=== PATIENT | female | born 1950 | race Caucasian/White ===

== ENCOUNTER 2017-10-22 05:24 | Inpatient (IN) | payer MEDICARE ==
[~2017-10-22] VITALS: Ht 177.8 cm; Wt 78.0 kg
[2017-10-22 05:25] VITALS: BP 215/122
[2017-10-22 05:46] LABS: ABSOLUTE BASOPHILS 0.1 thou/uL (0.0-0.2); ABSOLUTE MONOCYTES 0.3 thou/uL (0.0-1.2); ABSOLUTE NEUTROPHILS 2.4 thou/uL (1.6-8.1); BASOPHILS 3.2 %; EOSINOPHILS 0.5 %; HEMATOCRIT 41.4 % (37.0-47.0); HEMOGLOBIN 14.4 gm/dL (12.0-15.0); LYMPHOCYTES 26.8 %; MCH 38.6 pg (26.0-34.0); MCHC 34.7 g/dL (28.0-37.0); MCV 111.1 fL (80.0-100.0); MONOCYTES 7.3 %; MPV 9.1 fl. (7.2-11.1); NUCLEATED RBCS 0 /100WBC; PLATELET COUNT* 137 thou/uL (150-400); POLYS 62.2 %; RBC 3.73 mil/uL (4.20-5.00); RDW-CV 15.1 % (10.5-14.5); WBC 3.9 thou/uL (4.0-11.0)
[2017-10-22 05:51] LABS: CALCIUM 10.1 mg/dL (8.5-10.1); CREATININE 0.8 mg/dL (0.6-1.3); POTASSIUM 3.6 mmol/L (3.5-5.1)
[2017-10-22 06:05] LABS: ALBUMIN 4.3 g/dL (3.4-5.0); TOTAL BILIRUBIN 1.2 mg/dL (<0.1-1.0)
[2017-10-22 08:00] VITALS: BP 118/74
[2017-10-22 08:00] LABS: URINE BILIRUBIN NEGATIVE (Negative); URINE BLOOD NEGATIVE (Negative); URINE CLARITY CLEAR; URINE COLOR YELLOW; URINE GLUCOSE-RANDOM NEGATIVE (Negative); URINE KETONES NEGATIVE (Negative); URINE LEUKOCYTES-REFLEX NEGATIVE (Negative); URINE NITRITE-REFLEX NEGATIVE (Negative); URINE PROTEIN NEGATIVE (Negative); URINE SPECIFIC GRAVITY <= 1.005 (1.005-1.030)
[2017-10-22 08:38] LABS: PLATELET ESTIMATE DECREASED
[2017-10-22 08:39] LABS: MACROCYTES 2+
[2017-10-22 09:22] LABS: AMP/METHAMP Negative (Negative); BARBITURATES Negative (Negative); BENZODIAZEPINES Negative (Negative); COCAINE Negative (Negative); METHADONE Negative (Negative); OPIATES Negative (Negative); PCP Negative (Negative); THC Negative (Negative)
[2017-10-22 11:03] VITALS: BP 110/62
[2017-10-22 11:15] VITALS: BP 124/101
[2017-10-22] MEDS ORDERED: NEURONTIN 300300 M1 PO (11:36)
[2017-10-22] MEDS ORDERED: CLONIDINE0.1 PO (11:39)
[2017-10-22 16:03] VITALS: BP 119/63
--- NOTE | 2017-10-22 16:06 | EKG ---
[place] [address] ELECTROCARDIOGRAM REPORT Name: ROMULO WHITMAN Room: [address] IN [facility]#: [id number] Admission: 10/22/17 Attend Phys: Quang Street, Discharge: Date of : 46 Report #: [id number] THIS REPORT FOR: //name// [facility] ED Test Date: 2017-10-22 Test Time: 05:54:29 Pat Name: ROMULO WHITMAN Department: Room: Gender: F Md Allergy Immunology: : 1950 Requested By: Cece Doss Order Number: [id number] MD: Chico Michael Measurements Intervals [place] Rate: 77 P: 34 AR: 199 QRS: 3 QRSD: 142 T: 15 QT: 422 QTc: 478 Interpretive Statements Sinus rhythm Right bundle branch block No previous ECG available for comparison Electronically Signed On 10-22-2017 16:05:42 CDT by Chico Michael [email or web address] <ELECTRONICALLY SIGNED> By: Chico Michael MD, [facility] 10/22/17 1605 0554 0554 Chico Michael MD, FACC /EPI
[2017-10-22 21:00] VITALS: BP 150/63
[2017-10-23 04:48] LABS: CALCIUM 8.3 mg/dL (8.5-10.1); CREATININE 0.7 mg/dL (0.6-1.3); POTASSIUM 3.9 mmol/L (3.5-5.1)
[2017-10-23 04:56] LABS: ABSOLUTE BASOPHILS 0.1 thou/uL (0.0-0.2); ABSOLUTE EOSINOPHILS 0.1 thou/uL (0.0-0.7); ABSOLUTE LYMPHOCYTES 1.5 thou/uL (0.8-5.3); ABSOLUTE MONOCYTES 0.3 thou/uL (0.0-1.2); ABSOLUTE NEUTROPHILS 1.9 thou/uL (1.6-8.1); BASOPHILS 1.5 %; EOSINOPHILS 1.7 %; HEMATOCRIT 31.9 % (37.0-47.0); LYMPHOCYTES 39.2 %; MCH 39.3 pg (26.0-34.0); MCHC 34.6 g/dL (28.0-37.0); MCV 113.3 fL (80.0-100.0); MONOCYTES 8.2 %; MPV 9.4 fl. (7.2-11.1); NUCLEATED RBCS 0 /100WBC; PLATELET COUNT* 97 thou/uL (150-400); POLYS 49.4 %; RBC 2.81 mil/uL (4.20-5.00); RDW-CV 15.3 % (10.5-14.5); WBC 3.9 thou/uL (4.0-11.0)
[2017-10-23 07:10] LABS: MACROCYTES 2+; PLATELET ESTIMATE DECREASED
[2017-10-23 07:11] LABS: ANISOCYTOSIS 2+; POIKILOCYTOSIS 1+
[2017-10-23 08:20] VITALS: BP 173/85
[2017-10-23 17:34] VITALS: BP 167/82
[2017-10-23 21:00] VITALS: BP 164/78
[2017-10-24 04:00] VITALS: BP 168/92
[2017-10-24 04:22] LABS: ABSOLUTE EOSINOPHILS 0.1 thou/uL (0.0-0.7); ABSOLUTE LYMPHOCYTES 1.4 thou/uL (0.8-5.3); ABSOLUTE MONOCYTES 0.3 thou/uL (0.0-1.2); ABSOLUTE NEUTROPHILS 2.2 thou/uL (1.6-8.1); BASOPHILS 1.1 %; EOSINOPHILS 1.8 %; HEMATOCRIT 32.3 % (37.0-47.0); HEMOGLOBIN 11.1 gm/dL (12.0-15.0); MCH 39.6 pg (26.0-34.0); MCHC 34.3 g/dL (28.0-37.0); MCV 115.4 fL (80.0-100.0); MONOCYTES 8.5 %; MPV 9.1 fl. (7.2-11.1); NUCLEATED RBCS 0 /100WBC; PLATELET COUNT* 103 thou/uL (150-400); POLYS 53.6 %; RBC 2.79 mil/uL (4.20-5.00); RDW-CV 15.6 % (10.5-14.5); WBC 4.1 thou/uL (4.0-11.0)
[2017-10-24 05:51] LABS: ANISOCYTOSIS 1+; MACROCYTES 2+
[2017-10-24 05:52] LABS: PLATELET ESTIMATE DECREASED; POIKILOCYTOSIS 1+
[2017-10-24 08:00] VITALS: BP 158/64
[2017-10-24 09:35] VITALS: BP 158/64
[2017-10-24 14:10] LABS: HEPATITIS B SURFACE AG Negative (Negative)
[2017-10-24 17:08] LABS: M-SPIKE Not Observed g/dL (Not Observed)
[2017-10-25 14:08] LABS: ANA INTERPRETATION Negative (Negative)
[2018-02-19] MEDS ORDERED: CENTRUM SILVER1 EAC4 PO (06:54)
[2018-02-19] MEDS ORDERED: VITAMINC500 PO (06:55)
[2018-02-19] MEDS ORDERED: NORCO 5-325 TA1 EACH PO (06:55)
[2018-02-19] MEDS ORDERED: TYLENOL325 MG PO (06:56)
[2018-02-19] MEDS ORDERED: MIRALAX17 GM PO (10:49)
[2018-02-19] MEDS ORDERED: LIDOCAINE TRANSDERM (10:52)
[2018-02-19] MEDS ORDERED: IMIPENEM-CILAS500 MG IV (10:54)
== END 2017-10-24 09:55 | disposition home or self-care (01) | DRG 809 ==
LOC: M.ERS 05:24 → M.TBA-ER 07:14 → M.ORTHSURG 07:14
PROVIDERS: Emergency Medicine; Internal Medicine; Internal Medicine Hematology & Oncology; ADMIT Family Medicine
DX: D61.818 Other pancytopenia (principal); E87.1 Hypo-osmolality and hyponatremia; B34.9 Viral infection, unspecified; E86.0 Dehydration; K59.09 Other constipation; F17.210 Nicotine dependence, cigarettes, uncomplicated; K76.0 Fatty (change of) liver, not elsewhere classified; Z90.710 Acquired absence of both cervix and uterus; Z88.0 Allergy status to penicillin; Z88.8 Allergy status to other drugs, medicaments and biological substances

== ENCOUNTER 2017-10-26 05:45 | Inpatient (IN) | payer MEDICARE ==
[~2017-10-26] VITALS: Ht 177.8 cm; Wt 75.3 kg
--- NOTE | ~2017-10-26 | PROC ---
[address] [address] PROCEDURE REPORT Name: ROMULO WHITMAN Room: [address] IN ..#: [id number] Admission: 10/26/17 Attend Phys: Marceal Nugent Discharge: 10/30/17 Date of : 46 Report #: [id number] THIS REPORT FOR: //name// For GI report, please see the Provation report in Perceptive 7 content. By: 1128Medical Records Staff YO /STEVEN
[2017-10-26 05:45] VITALS: BP 169/104
[~2017-10-26 05:45] MED LIST: CLONIDINE0.1 PO; NEURONTIN 300300 M1 PO
[2017-10-26 06:29] LABS: ABSOLUTE BASOPHILS 0.1 thou/uL (0.0-0.2); ABSOLUTE LYMPHOCYTES 0.9 thou/uL (0.8-5.3); ABSOLUTE MONOCYTES 0.6 thou/uL (0.0-1.2); ABSOLUTE NEUTROPHILS 4.4 thou/uL (1.6-8.1); EOSINOPHILS 0.2 %; HEMATOCRIT 41.3 % (37.0-47.0); LYMPHOCYTES 15.9 %; MCH 38.3 pg (26.0-34.0); MCHC 34.5 g/dL (28.0-37.0); MCV 110.9 fL (80.0-100.0); MONOCYTES 9.5 %; MPV 8.4 fl. (7.2-11.1); NUCLEATED RBCS 0 /100WBC; PLATELET COUNT* 170 thou/uL (150-400); POLYS 73.4 %; RBC 3.73 mil/uL (4.20-5.00); RDW-CV 15.5 % (10.5-14.5); WBC 5.9 thou/uL (4.0-11.0)
[2017-10-26 06:30] LABS: HEMOGLOBIN 14.3 gm/dL (12.0-15.0)
[2017-10-26 06:44] LABS: ANION GAP 17 mmol/L (7-16); BUN 15 mg/dL (7-18); CALCIUM 9.2 mg/dL (8.5-10.1); CHLORIDE 90 mmol/L (98-107); CO2 24 mmol/L (21-32); CREATININE 0.9 mg/dL (0.6-1.3); GLUCOSE 102 mg/dL (70-99); POTASSIUM 3.2 mmol/L (3.5-5.1); SODIUM 131 mmol/L (136-145)
[2017-10-26 06:46] LABS: MACROCYTES 1+; PLATELET ESTIMATE ADEQUATE
[2017-10-26 06:50] LABS: ALKALINE PHOSPHATASE 72 U/L (46-116); LIPASE 70 U/L (73-393); SGOT 83 U/L (15-37); SGPT 99 U/L (30-65); TOTAL BILIRUBIN 1.2 mg/dL (<0.1-1.0); TOTAL PROTEIN 7.9 g/dL (6.4-8.2); TROPONIN-I LEVEL <0.06 ng/mL (<0.06)
[2017-10-26 07:24] LABS: URINE BLOOD NEGATIVE (Negative); URINE CLARITY CLEAR; URINE COLOR DARK YELLOW; URINE GLUCOSE-RANDOM NEGATIVE (Negative); URINE KETONES 2+ (Negative); URINE LEUKOCYTES-REFLEX TRACE (Negative); URINE PROTEIN 2+ (Negative); URINE SPECIFIC GRAVITY 1.025 (1.005-1.030)
[2017-10-26 07:31] LABS: ICTOTEST (BILI CONFIRMATORY) Positive (Negative); URINE BILIRUBIN 3+ (Negative); URINE NITRITE-REFLEX POSITIVE (Negative)
[2017-10-26 07:38] LABS: BACTERIA-REFLEX 1-9 Few /HPF (None Seen); CASTS None Seen /LPF (None Seen); CRYSTALS None Seen /LPF (None Seen); HYALINE CASTS 4-10 Moderate /LPF (None Seen); MUCUS >6 Heavy strn/LPF (None Seen); SQUAMOUS 4-10 Moderate /LPF (0-3); URINE RBC 3-10 Few /HPF (0-2); URINE WBC-REFLEX 6-15 Few /HPF (0-5)
[2017-10-26 09:37] VITALS: BP 168/104
[2017-10-26 09:50] VITALS: BP 186/103
--- NOTE | 2017-10-26 10:55 | EKG ---
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 Garage: : 1950 Requested By: Lars No Order Number: [id number] MD: Darren Mcgrath Measurements Intervals [place] Rate: 82 P: 17 AL: 184 QRS: -19 QRSD: 138 T: -6 QT: 445 QTc: 520 Interpretive Statements Sinus rhythm Right bundle branch block Left ventricular hypertrophy Prolonged QT interval Compared to ECG 10/22/2017 05:54:29 Left ventricular hypertrophy now present Prolonged QT interval now present Electronically Signed On 10-26-2017 10:55:29 CDT by Darren Mcgrath [email or web address] <ELECTRONICALLY SIGNED> By: Darren Mcgrath MD, FACC 10/26/17 1055 0649 0649 Darren Mcgrath MD, [facility] /EPI
[2017-10-26 16:30] VITALS: BP 150/79
--- NOTE | 2017-10-26 19:19 | NUR ---
PATIENT ARRIVED FROM ER THIS AM. HISTORY AND ASSESSMENT COMPLETED AND DOCUMENTED. PATIENT HAS HAD COMPLAINTS OF ABDOMINAL CRAMPING WITH COMPLETE RELIEF PROVIDED BY MORPHINE. PATIENT HAS GOOD APPETITE. PATIENT IS UP AD MALINDA IN ROOM. PATIENT DENIES ANY NEED AT THIS TIME. CALL LIGHT WITHIN REACH. WILL CONITNUE TO MONITOR.
[2017-10-26 23:40] VITALS: BP 140/74
--- NOTE | 2017-10-27 05:57 | NUR ---
PATIENT SLEPT WELL DURING THIS SHIFT. PT UP AD MALINDA TO BATHROOM. PT WITH FLUIDS INFUSING PER DR ORDER. PT REQUESTED PAIN/NAUSEA MEDICATION X1 DURING THIS SHIFT AND ABLE TO RETURN TO SLEEP AFTERWARDS. PT WITH LOOSE FORMED STOOLS. FREQUENTLY USED ITEMS AND CALL LIGHT WITHIN REACH. SIDERAILS UPX2. WILL CONTINUE TO MONITOR.
[2017-10-27 07:40] VITALS: BP 149/65
--- NOTE | 2017-10-27 10:50 | NUR ---
Pt is A&O. Resides at home alone. Independent with ADLS, continues to cook and drive. Pt's granddaughter assists with cleaning. No DME. No hx of HH or SNF. Goal is to return home at hi, no needs anticipated.
--- NOTE | 2017-10-27 18:29 | NUR ---
PATIENT RESTING IN BED. PATIENT IS UP AD MALINDA IN ROOM. PATIENT STATES SHE FEELS WORSE TODAY THAN YESTERDAY. PATIENT HAS HAD COMPLAINTS OF ABDOMINAL PAIN/CRAMPING AND NAUSEA WITH NO VOMITING, BOTH TREATED ADEQUATELY WITH MEDICATION. PATIENT IS TOLERATING CLEAR LIQUID DIET. PATIENT DENIES ANY NEEDS AT THIS TIME. CALL LIGHT WITHIN REACH. WILL CONTINUE TO MONITOR.
[2017-10-27 20:00] VITALS: BP 148/79
--- NOTE | 2017-10-28 05:05 | NUR ---
PT SLEPT AT INTERVALS DURING THE NIGHT, IV FLUIDS INFUSED, UP AD MALINDA, PLEASANT, PRN PAIN AND NAUSEA MEDICATIONS, CALL LIGHT IN REACH, WILL CONTINUE TO MONITOR
[2017-10-28 08:30] VITALS: BP 150/66
[2017-10-28] MEDS ORDERED: PREVACID30 MG PO (10:53)
[2017-10-28 15:55] VITALS: BP 131/83
--- NOTE | 2017-10-28 16:23 | NUR ---
PATIENT SEEN BY GI THIS SHIFT. NPO AFTER MIDNIGHT AND EGD IN AM. CONSENT SIGNED AND PLACED ON CHART. IVF REMAINS INFUSING, FLAGYL ORDERED TO SCHED ABX REGIMEN. POOR APPETITE. PRN MORPHINE AND ZOFRAN GIVEN PER MAR ORDERS FOR ABD PAIN/NAUSEA. UP AD MALINDA.
[2017-10-28 20:00] VITALS: BP 107/80
[2017-10-29 04:22] VITALS: BP 107/80; BP 167/100; BP 179/73
[2017-10-29 04:35] LABS: HEMATOCRIT 33.8 % (37.0-47.0); MCHC 34.3 g/dL (28.0-37.0); MCV 113.5 fL (80.0-100.0); MPV 8.4 fl. (7.2-11.1); NUCLEATED RBCS 0 /100WBC; PLATELET COUNT* 156 thou/uL (150-400); RBC 2.98 mil/uL (4.20-5.00); RDW-CV 14.9 % (10.5-14.5); WBC 4.4 thou/uL (4.0-11.0)
[2017-10-29 04:38] LABS: HEMOGLOBIN 11.6 gm/dL (12.0-15.0)
[2017-10-29 05:03] LABS: ALBUMIN 3.2 g/dL (3.4-5.0); CREATININE 0.7 mg/dL (0.6-1.3); TOTAL BILIRUBIN 0.8 mg/dL (<0.1-1.0); TOTAL PROTEIN 5.8 g/dL (6.4-8.2)
--- NOTE | 2017-10-29 05:07 | NUR ---
PT SLEPT AT INTERVALS DURING THE NIGHT, IV FLUIDS AND ANTIBIOTICS GIVEN, PLEASANT, UP AD MALINDA, NPO SINCE MIDNIGHT FOR EGD TODAY, PRN PAIN AND NAUSEA MEDS PER REQUEST, CALL LIGHT IN REACH, WILL CONTINUE TO MONITOR
[2017-10-29 05:10] LABS: POTASSIUM 2.9 mmol/L (3.5-5.1)
[2017-10-29 06:10] VITALS: BP 179/73
[2017-10-29 06:30] LABS: ABSOLUTE BASOPHILS 0.1 thou/uL (0.0-0.2); ABSOLUTE LYMPHOCYTES 0.8 thou/uL (0.8-5.3); ABSOLUTE MONOCYTES 0.4 thou/uL (0.0-1.2); ABSOLUTE NEUTROPHILS 3.1 thou/uL (1.6-8.1); MACROCYTES 2+; PLATELET ESTIMATE ADEQUATE
[2017-10-29 06:31] LABS: ANISOCYTOSIS 1+; HYPOCHROMASIA 1+
[2017-10-29 07:45] VITALS: BP 179/75
--- NOTE | 2017-10-29 08:55 | CON ---
[address] [address] CONSULTATION Name: ROMULO WHITMAN Room: [address] IN [facility]#: [id number] Admission: 10/26/17 Attend Phys: Marcela Nugent Discharge: Date of : 46 Report #: [id number] THIS REPORT FOR: //name// CC: Darren Adam DATE OF SERVICE: 10/28/2017 REASON FOR CONSULT: Persistent nausea, vomiting and intermittent diarrhea. HISTORY OF PRESENT ILLNESS: This is a 67-year-old female with persistent nausea, vomiting and anorexia, which has been going on for the past 4 days. She has a history of acute intermittent porphyria, but believes that this is completely different from her AIP attacks. Her last AIP attack was 4 years ago. She reports that she had a colonoscopy over 10 years ago, but has never had upper scope. She denies any hematochezia or melena, but reports of excessive gas and bloating, which causes so much pressure in her abdomen. The bloating is generalized. She usually vomits bile, which relieves her symptoms. She denies any hematemesis. PAST MEDICAL HISTORY: Significant for history of acute intermittent porphyria, constipation, hypertension, history of radical hysterectomy, cyst removal from ovaries. ALLERGIES: SIGNIFICANT TO PENICILLIN AND PROCHLORPERAZINE. MEDICATIONS: Please refer to hospital MAR. SOCIAL HISTORY: The patient lives at home, smokes 1 pack of cigarette for the past 50 years. She also occasionally has alcoholic beverage. FAMILY HISTORY: She denies any history of colon cancer in the family. PHYSICAL EXAMINATION: VITAL SIGNS: Reveals blood pressure of 150/66, respirations 18, pulse 52, temperature 98.4. LUNGS: Clear. CARDIOVASCULAR: Regular. ABDOMEN: Soft, mildly distended. Bowel sounds are positive and mild tenderness to palpation in all 4 quadrants. LABORATORY DATA: Revealed sodium of 131, potassium 3.2, BUN is 15, creatinine 0.9, glucose is 102. AST 83, ALT 99, total bilirubin is 102. Lipase is 70. WBC is 5.9, hemoglobin is 14.3 with platelet of 107. Labs reveal elevated urobilinogen of 4.0, nitrites are positive, wbc is 6-15 with imaging suggesting diffuse hepatic steatosis [place] [id number] CONSULTATION Name: ROMULO WHITMAN Room: [address] IN [facility]#: [id number] Admission: 10/26/17 Attend Phys: Marcela Nugent Discharge: Date of : 46 Report #: [id number] ASSESSMENT AND PLAN: The patient with persistent nausea, vomiting and history of acute intermittent porphyria whose urobilinogen is elevated to 4. I will order aminolevulinic acid and porphobilinogen levels but since the patient thinks this is very different than her acute intermittent porphyria attacks, we will perform upper scope. She will also need a colonoscopy at some point, which we will schedule her for. Her liver enzymes are elevated and imaging suggestive of fatty liver. She most probably has steatohepatitis. We will work her up in this regards. <ELECTRONICALLY SIGNED> By: Brett Tony MD 10/29/17 0855 1202 [id number] Tony MD /nt
[2017-10-29 09:54] VITALS: BP 196/84
[2017-10-29 16:00] VITALS: BP 160/72
--- NOTE | 2017-10-29 16:17 | NUR ---
PATIENT HAD EGD THIS AM. BIOPSIES TAKEN. ELEVATED BP ON ARRIVAL BACK TO ROOM FROM PACU, DR. LEZAMA WAS MADE AWARE. PRN MORPHINE AND ZOFRAN GIVEN X 1 THIS SHIFT. IVF AND SCHED ABX REMAIN. PATIENT TOLERATING SMALL AMOUNT OF REG DIET. POTASSIUM 2.9 THIS AM, REPLACING THIS SHIFT PER PROTOCOL.
[2017-10-30 00:13] VITALS: BP 106/45
--- NOTE | 2017-10-30 06:51 | NUR ---
ASSESSMENT COMPLETE. PT SLEPT MOST OF THE NIGHT. PT REPORTS ABDOMINAL PAIN AND NAUSEA, MORPHINE AND ZOFRAN GIVEN NEEDED WITH PARTIAL RELIEF REPORTED. PT ALSO ON IV CIPRO AND FLAGYL. PT IS ON ROOM AIR WITH [place] SATS. PT BP LOW AT HS, MEDS NOT GIVEN. KT LOW, REPLACEMENT STARTED. PT HAS IV IN LEFT FOREARM, FLUIDS INFUSING. PT IS UP AD MALINDA WITH STEADY GAIT. SEE ASSESSMENT AND VITALS FOR OTHER DETAILS. CALL LIGHT WITHIN REACH, WILL CONTINUE PLAN OF CARE
[2017-10-30 09:15] VITALS: BP 159/75
[2017-10-30] MEDS ORDERED: TRAMADOL 50 MG50 MG PO (12:59)
[2017-10-30] MEDS ORDERED: CIPRO500 MG PO (13:00)
[2017-10-30] MEDS ORDERED: FLAGYL500 MG PO (13:01)
[2017-10-30] MEDS ORDERED: PROTONIX40 M1 PO (13:02)
[2017-10-30] MEDS ORDERED: ONDANSETRON HCL4 M2 PO (13:03)
[2017-10-30 13:07] VITALS: BP 159/75
--- NOTE | 2017-10-30 13:31 | NUR ---
PATIENT IS ALERT AND ORIENTED TODAY VERY PLEASANT. UP AD MALINDA IN ROOM VITAL SIGNS STABLE ON ROOM AIR. SOME COMPLAINTS OF PAIN THAT IS SOMEWHAT CONTROLLED WITH PAIN MEDICATIONS. PATIENT IS BEING DISCHARGED TO HOME. DISCHARGE INSTRUCTIONS GIVEN AND PRESCRIPTIONS GIVEN, QUESTIONS ANSWERED FOR PATIENT AND SON. LEFT VIA WHEEL CHAIR TO HOME WITH SON.
[2017-10-30 13:42] VITALS: BP 159/75
--- NOTE | 2018-01-24 15:08 | PATH ---
[address] [address] PATHOLOGY RPT PROCEDURE Name: EMMA WHITMAN Room: [address] IN .R.#: [id number] Admission: 10/26/17 Date of : 46 Discharge: 10/30/17 Report #: [id number] Path Case #: [id number] [facility] Accession Number: [id number] . 01 Material submitted: . GASTRIC BIOPSY RULE OUT H PYLORI . 01 Clinical history: . Rule out H. pylori Gastritis . 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 (AQUILES:pit; 10/30/2017) QTP/10/31/2017 . 02 Comment: Special stain: H. pylori immuno . 02 Electronically signed: . Pablito Contreras MD, Pathologist NPI- [id number] . 01 Gross description: . The specimen is received in formalin, labeled "Whitman, Emma, gastric biopsy" and consists of multiple fragments of hernandez soft tissue measuring 1.0 x 0.9 x 0.2 cm in aggregate. They are entirely submitted in A1. (SDY; 10/30/2017) SYU/SYU . 02 Pathologist provided ICD-10: K29.50 . 02 CPT . 341110, A08233 Performed at: [address], [place] [id number] MD Mook You MD Phone: [phone] Performed at: [address] [address] [place], [place] [id number] MD Pablito Contreras MD Phone: [phone]
[2018-02-19] MEDS ORDERED: CENTRUM SILVER1 EAC4 PO (06:54)
[2018-02-19] MEDS ORDERED: VITAMINC500 PO (06:55)
[2018-02-19] MEDS ORDERED: NORCO 5-325 TA1 EACH PO (06:55)
[2018-02-19] MEDS ORDERED: TYLENOL325 MG PO (06:56)
[2018-02-19] MEDS ORDERED: MIRALAX17 GM PO (10:49)
[2018-02-19] MEDS ORDERED: LIDOCAINE TRANSDERM (10:52)
[2018-02-19] MEDS ORDERED: IMIPENEM-CILAS500 MG IV (10:54)
== END 2017-10-30 13:40 | disposition home or self-care (01) | DRG 372 ==
LOC: M.ERS 05:45 → M.TBA-ER 08:00 → M.3W 08:00
PROVIDERS: Emergency Medicine Emergency Medical Services; ADMIT Internal Medicine
PROC: 0DB68ZX Excision of Stomach, Via Natural or Artificial Opening Endoscopic, Diagnostic (ICD-10-PCS; principal; 2017-10-26)
DX: A04.9 Bacterial intestinal infection, unspecified (principal); N39.0 Urinary tract infection, site not specified; E87.1 Hypo-osmolality and hyponatremia; E80.20 Unspecified porphyria; F17.210 Nicotine dependence, cigarettes, uncomplicated; I10 Essential (primary) hypertension; E86.0 Dehydration; K21.0 Gastro-esophageal reflux disease with esophagitis; K29.70 Gastritis, unspecified, without bleeding; K44.9 Diaphragmatic hernia without obstruction or gangrene; Z90.710 Acquired absence of both cervix and uterus; Z79.899 Other long term (current) drug therapy; Z88.0 Allergy status to penicillin; Z88.8 Allergy status to other drugs, medicaments and biological substances

== ENCOUNTER 2017-11-05 10:43 | Inpatient (IN) | payer MEDICARE ==
[~2017-11-05] VITALS: Ht 177.8 cm; Wt 78.0 kg
[~2017-11-05 10:43] MED LIST changes: +CIPRO500 MG PO; +FLAGYL500 MG PO; +ONDANSETRON HCL4 M2 PO; +PREVACID30 MG PO; +PROTONIX40 M1 PO; +TRAMADOL 50 MG50 MG PO
[2017-11-05 10:50] VITALS: BP 179/119
[2017-11-05 11:22] LABS: ABSOLUTE LYMPHOCYTES 1.1 thou/uL (0.8-5.3); ABSOLUTE MONOCYTES 0.7 thou/uL (0.0-1.2); ABSOLUTE NEUTROPHILS 7.6 thou/uL (1.6-8.1); BASOPHILS 0.5 %; EOSINOPHILS 0.3 %; HEMATOCRIT 41.5 % (37.0-47.0); HEMOGLOBIN 14.7 gm/dL (12.0-15.0); LYMPHOCYTES 11.9 %; MCHC 35.3 g/dL (28.0-37.0); MCV 107.6 fL (80.0-100.0); MONOCYTES 7.3 %; MPV 8.4 fl. (7.2-11.1); NUCLEATED RBCS 0 /100WBC; PLATELET COUNT* 213 thou/uL (150-400); RBC 3.86 mil/uL (4.20-5.00); RDW-CV 15.2 % (10.5-14.5); WBC 9.5 thou/uL (4.0-11.0)
[2017-11-05 11:34] LABS: CALCIUM 9.1 mg/dL (8.5-10.1); CREATININE 0.7 mg/dL (0.6-1.3)
[2017-11-05 11:39] LABS: TOTAL PROTEIN 7.5 g/dL (6.4-8.2)
[2017-11-05 11:40] LABS: POTASSIUM 3.1 mmol/L (3.5-5.1)
[2017-11-05 14:05] LABS: URINE BLOOD NEGATIVE (Negative); URINE CLARITY CLEAR; URINE COLOR YELLOW; URINE GLUCOSE-RANDOM NEGATIVE (Negative); URINE KETONES 1+ (Negative); URINE LEUKOCYTES-REFLEX NEGATIVE (Negative); URINE NITRITE-REFLEX NEGATIVE (Negative); URINE PROTEIN 1+ (Negative); URINE SPECIFIC GRAVITY 1.015 (1.005-1.030); URINE UROBILINOGEN 0.2 E.U./dl (0.2-1.0)
[2017-11-05 14:06] LABS: ICTOTEST (BILI CONFIRMATORY) Negative (Negative); URINE BILIRUBIN 1+ (Negative)
[2017-11-05 18:38] VITALS: BP 141/99
[2017-11-05 20:00] VITALS: BP 159/90
[2017-11-05 20:11] VITALS: BP 170/100
[2017-11-06] VITALS (7 sets, daily range): BP systolic 141–179; BP diastolic 73–99
[2017-11-06 04:51] LABS: HEMATOCRIT 41.6 % (37.0-47.0); HEMOGLOBIN 14.2 gm/dL (12.0-15.0); MCH 37.2 pg (26.0-34.0); MCHC 34.1 g/dL (28.0-37.0); MCV 109.1 fL (80.0-100.0); RBC 3.81 mil/uL (4.20-5.00); RDW-CV 15.3 % (10.5-14.5); WBC 8.2 thou/uL (4.0-11.0)
[2017-11-06 05:15] LABS: ALBUMIN 3.8 g/dL (3.4-5.0); CALCIUM 8.9 mg/dL (8.5-10.1); CREATININE 0.8 mg/dL (0.6-1.3); MAGNESIUM 1.5 mg/dL (1.8-2.4); POTASSIUM 3.4 mmol/L (3.5-5.1); TOTAL BILIRUBIN 0.7 mg/dL (<0.1-1.0); TOTAL PROTEIN 6.9 g/dL (6.4-8.2)
--- NOTE | 2017-11-06 11:22 | EKG ---
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 BROCK : 1950 Requested By: Melody Rowell Order Number: [id number] MD: Darren Mcgrath Measurements Intervals [place] Rate: 106 P: 75 LA: 185 QRS: -24 QRSD: 141 T: -17 QT: 398 QTc: 529 Interpretive Statements Sinus tachycardia Right bundle branch block LVH by voltage Prolonged QT interval Compared to ECG 10/26/2017 06:49:38 Sinus rhythm no longer present Electronically Signed On 11-06-2017 11:21:56 CDT by Darren Mcgrath [email or web address] <ELECTRONICALLY SIGNED> By: Darren Mcgrath MD, [facility] 11/06/17 1121 1705 1705 Darren Mcgrath MD, [facility] /EPI
[2017-11-07 04:00] VITALS: BP 173/92
[2017-11-07 05:19] LABS: HEMATOCRIT 36.8 % (37.0-47.0); HEMOGLOBIN 12.4 gm/dL (12.0-15.0); MCH 37.3 pg (26.0-34.0); MCHC 33.7 g/dL (28.0-37.0); MCV 110.5 fL (80.0-100.0); MPV 9.4 fl. (7.2-11.1); RBC 3.33 mil/uL (4.20-5.00); RDW-CV 15.4 % (10.5-14.5); WBC 7.2 thou/uL (4.0-11.0)
[2017-11-07 05:52] LABS: CALCIUM 8.8 mg/dL (8.5-10.1); CREATININE 0.6 mg/dL (0.6-1.3); MAGNESIUM 1.8 mg/dL (1.8-2.4); POTASSIUM 3.5 mmol/L (3.5-5.1)
[2017-11-07 08:30] VITALS: BP 183/86
[2017-11-07] MEDS ORDERED: LISINOPRIL10 MG PO (11:31)
[2017-11-07] MEDS ORDERED: MIRALAX17 GM PO (11:35)
[2017-11-07] MEDS ORDERED: CLONIDINE HCL0.2 M2 PO (11:35)
[2017-11-07 12:05] VITALS: BP 183/86
[2017-11-07 12:19] VITALS: BP 156/76
[2017-11-07 15:39] VITALS: BP 149/73
[2017-11-07 20:00] VITALS: BP 104/58
[2017-11-08] VITALS (8 sets, daily range): BP systolic 124–159; BP diastolic 61–81
[2017-11-08] MEDS ORDERED: ALPRAZOLAM1 MG PO (18:00)
[2017-11-09 00:02] VITALS: BP 193/98
[2017-11-09 04:16] VITALS: BP 182/93
[2017-11-09 04:45] LABS: CALCIUM 9.3 mg/dL (8.5-10.1); CREATININE 0.6 mg/dL (0.6-1.3); MAGNESIUM 1.7 mg/dL (1.8-2.4); POTASSIUM 3.7 mmol/L (3.5-5.1)
[2017-11-09 08:00] VITALS: BP 163/89
[2017-11-09] MEDS ORDERED: TRANSDERM-SCOP1 EACH TRANSDERM (08:57)
[2017-11-09] MEDS ORDERED: LISINOPRIL20 MG PO (08:57)
[2017-11-09] MEDS ORDERED: CIPRO500 MG PO (08:57)
[2017-11-09 13:25] VITALS: BP 183/86
[2017-11-10] VITALS: BP 147/66
[2017-11-10 08:00] VITALS: BP 138/72
[2018-02-19] MEDS ORDERED: CENTRUM SILVER1 EAC4 PO (06:54)
[2018-02-19] MEDS ORDERED: VITAMINC500 PO (06:55)
[2018-02-19] MEDS ORDERED: NORCO 5-325 TA1 EACH PO (06:55)
[2018-02-19] MEDS ORDERED: TYLENOL325 MG PO (06:56)
[2018-02-19] MEDS ORDERED: MIRALAX17 GM PO (10:49)
[2018-02-19] MEDS ORDERED: LIDOCAINE TRANSDERM (10:52)
[2018-02-19] MEDS ORDERED: IMIPENEM-CILAS500 MG IV (10:54)
== END 2017-11-10 14:00 | DRG 641 ==
LOC: M.ERS 10:43 → M.2W 15:02 → M.TBA-ER 15:02 → M.2W 18:47 → M.3W 11-08 18:30
PROVIDERS: Physician Assistant; ADMIT Internal Medicine
DX: E87.1 Hypo-osmolality and hyponatremia (principal); K29.70 Gastritis, unspecified, without bleeding; I10 Essential (primary) hypertension; E87.6 Hypokalemia; K59.00 Constipation, unspecified; F17.210 Nicotine dependence, cigarettes, uncomplicated; Z90.710 Acquired absence of both cervix and uterus; Z79.899 Other long term (current) drug therapy; Z88.0 Allergy status to penicillin; Z88.8 Allergy status to other drugs, medicaments and biological substances

== ENCOUNTER 2017-11-14 13:04 | Inpatient (IN) | payer MEDICARE ==
[~2017-11-14] VITALS: Ht 180.3 cm; Wt 77.1 kg
[~2017-11-14 13:04] MED LIST changes: +ALPRAZOLAM1 MG PO; +CLONIDINE HCL0.2 M2 PO; +LISINOPRIL10 MG PO; +LISINOPRIL20 MG PO; +MIRALAX17 GM PO; +TRANSDERM-SCOP1 EACH TRANSDERM
[2017-11-14 13:06] VITALS: BP 93/55
[2017-11-14 13:23] LABS: ABSOLUTE BASOPHILS 0.1 thou/uL (0.0-0.2); ABSOLUTE EOSINOPHILS 0.1 thou/uL (0.0-0.7); ABSOLUTE LYMPHOCYTES 1.3 thou/uL (0.8-5.3); ABSOLUTE MONOCYTES 0.7 thou/uL (0.0-1.2); ABSOLUTE NEUTROPHILS 4.7 thou/uL (1.6-8.1); EOSINOPHILS 1.6 %; HEMOGLOBIN 11.6 gm/dL (12.0-15.0); LYMPHOCYTES 19.2 %; MCH 36.8 pg (26.0-34.0); MCHC 34.1 g/dL (28.0-37.0); MCV 107.9 fL (80.0-100.0); MONOCYTES 10.5 %; MPV 8.8 fl. (7.2-11.1); NUCLEATED RBCS 0 /100WBC; PLATELET COUNT* 221 thou/uL (150-400); POLYS 67.7 %; RBC 3.15 mil/uL (4.20-5.00); RDW-CV 15.4 % (10.5-14.5)
[2017-11-14] MEDS ORDERED: ONDANSETRON HCL4 M2 PO (13:26)
[2017-11-14] MEDS ORDERED: PROTONIX40 M1 PO (13:26)
[2017-11-14] MEDS ORDERED: MIRALAX17 GM PO (13:27)
[2017-11-14] MEDS ORDERED: LISINOPRIL10 MG PO (13:27)
[2017-11-14 13:30] LABS: INR 1.1
--- NOTE | 2017-11-14 13:44 | NUR ---
CT HEAD COMPLEATED PATIENT RETURNED TO ED
[2017-11-14 13:47] LABS: ALBUMIN 3.1 g/dL (3.4-5.0); ALKALINE PHOSPHATASE 64 U/L (46-116); ANION GAP 9 mmol/L (7-16); BUN 30 mg/dL (7-18); CHLORIDE 92 mmol/L (98-107); CO2 29 mmol/L (21-32); CREATININE 2.1 mg/dL (0.6-1.3); GLUCOSE 113 mg/dL (70-99); NT-PRO BRAIN NAT PEPTIDE 2005 pg/mL (<300); SGOT 90 U/L (15-37); SGPT 72 U/L (30-65); SODIUM 130 mmol/L (136-145); TOTAL BILIRUBIN 0.8 mg/dL (<0.1-1.0); TOTAL PROTEIN 6.7 g/dL (6.4-8.2); TROPONIN-I LEVEL <0.06 ng/mL (<0.06)
[2017-11-14 13:50] LABS: POTASSIUM 2.6 mmol/L (3.5-5.1)
[2017-11-14 14:11] LABS: SALICYLATE < 2.8 mg/dL (2.8-20.0)
[2017-11-14 14:13] LABS: ACETAMINOPHEN < 2 ug/mL (10-30); ALCOHOL < 10 mg/dL (<10)
--- NOTE | 2017-11-14 15:27 | EKG ---
[place] [address] ELECTROCARDIOGRAM REPORT Name: ROMULO WHITMAN Room: [address] IN [facility]#: [id number] Admission: 11/14/17 Attend Phys: Sandro Wong MD Discharge: Date of : 46 Report #: [id number] THIS REPORT FOR: //name// [facility] ED Test Date: 2017-11-14 Test Time: 13:14:43 Pat Name: ROMULO WHITMAN Department: Room: Gender: F Soft Sugar Cutter: MACARIO : 1950 Requested By: Rubens Esteban Order Number: [id number] MD: Joseph Galvez Measurements Intervals [place] Rate: 60 P: 31 NM: 205 QRS: -6 QRSD: 155 T: -18 QT: 502 QTc: 502 Interpretive Statements Sinus rhythm Right bundle branch block LVH with IVCD and secondary repol abnrm Prolonged QT interval Compared to ECG 11/05/2017 17:05:51 Intraventricular conduction delay now present Early repolarization now present Sinus tachycardia no longer present Electronically Signed On 11-14-2017 15:27:16 CDT by Joseph Galvez [email or web address] <ELECTRONICALLY SIGNED> By: Joseph Galvez MD, FAC 11/14/17 1527 1314 1314 Joseph Galvez MD, FAC /EPI
[2017-11-14 15:34] VITALS: BP 167/91
--- NOTE | 2017-11-14 18:58 | NUR ---
PATIENT RESTING IN BED. UP WITH ASSIST X2 TO BSC AND VERY SHAKEY. UNSTEADY GAIT. PATINET EDUCATED ON THE NEED OT CALL FOR ASSISTANCE. PHOTOGRAPHS TAKEN OF ARM WOUNDS ON ADMISSION. PATIENT WAS WITNESSED ACTIVLY PICKING AT WOUNDS. VITAL SIGNS STABLE. HOURLY ROUNDING COMPLETD FOR PATIENT SAFETY. PATINET IS DNR AND ABLE TO ANSWER ORIENTATION QUESTIONS BUT IS FREQUENTLY CONFUSED. HOURLY ROUNDING FOR PATIENT SAFETY.
[2017-11-14 20:16] VITALS: BP 184/91
[2017-11-14 22:26] LABS: URINE BILIRUBIN NEGATIVE (Negative); URINE BLOOD TRACE (Negative); URINE CLARITY CLEAR; URINE COLOR YELLOW; URINE GLUCOSE-RANDOM NEGATIVE (Negative); URINE KETONES NEGATIVE (Negative); URINE NITRITE-REFLEX NEGATIVE (Negative); URINE PROTEIN NEGATIVE (Negative); URINE SPECIFIC GRAVITY <= 1.005 (1.005-1.030); URINE UROBILINOGEN 0.2 E.U./dl (0.2-1.0)
[2017-11-14 22:28] LABS: URINE LEUKOCYTES-REFLEX 2+ (Negative)
[2017-11-14 22:30] LABS: URINE POTASSIUM-RANDOM 11.5 mmol/L
[2017-11-14 22:35] LABS: AMP/METHAMP Negative (Negative); BARBITURATES Negative (Negative); BENZODIAZEPINES Negative (Negative); COCAINE Negative (Negative); METHADONE Negative (Negative); OPIATES Negative (Negative); PCP Negative (Negative); THC Negative (Negative)
[2017-11-14 22:42] LABS: CASTS None Seen /LPF (None Seen); CRYSTALS None Seen /LPF (None Seen); MUCUS None Seen strn/LPF (None Seen); SQUAMOUS >10 Many /LPF (0-3); URINE RBC 0-2 Rare /HPF (0-2); URINE WBC-REFLEX 6-15 Few /HPF (0-5)
[2017-11-14 22:43] LABS: BACTERIA-REFLEX 1-9 Few /HPF (None Seen)
[2017-11-15] VITALS (8 sets, daily range): BP systolic 125–183; BP diastolic 83–104
--- NOTE | 2017-11-15 03:13 | NUR ---
RECEIVED REPORT AND ASSUMED CARE AT 1900. BP ELEVATED, OTHERWISE VSS. CARDIAC MONITORING IN PLACE. PT ON RA. PT ORIENTATED BUT VERY CONFUSED AND HALLUCINATING. PT PICKING ARM, CAUSING SOME BLEEDING. PT CLEANED AND BED CLEANED. PT REMOVED HER IV. NEW IV PLACED IN LEFT FA. PT HALLUCINATING VISUAL AND AUDITORY. MEDICATIONS ADMIN PER ORDERS. PT REDIRECTED MULTIPLE TIMES THROUGH THE NIGHT. PT IMPULSIVE AND ATTEMPTS TO GET OUT OF THE BED. PT UP WITH 2 TO BSC, VERY UNSTABLE WHEN UP. ASSESSMENT COMPLETED CHARTED. BED IN LOWEST POSITION, BED ALARM ON, CALL LIGHT WITHIN REACH. WILL CONTINUE TO MONITOR FOR REMAIDNER OF THE SHIFT
[2017-11-15 05:21] LABS: HEMATOCRIT 32.9 % (37.0-47.0); HEMOGLOBIN 11.3 gm/dL (12.0-15.0); MCH 36.9 pg (26.0-34.0); MCHC 34.3 g/dL (28.0-37.0); MCV 107.8 fL (80.0-100.0); MPV 8.9 fl. (7.2-11.1); RBC 3.05 mil/uL (4.20-5.00); RDW-CV 15.4 % (10.5-14.5)
[2017-11-15 05:46] LABS: CALCIUM 9.5 mg/dL (8.5-10.1); CREATININE 1.9 mg/dL (0.6-1.3); MAGNESIUM 1.2 mg/dL (1.8-2.4)
--- NOTE | 2017-11-15 12:05 | NUR ---
CM SPOKE TO THE PATIENT TO DISCUSS HOME SITUATION, DISCHARGE PLANNING AND TO INFORM OF THE ROLE OF CM. PATIENT ALERT, BUT CONFUSED. PATIENT NOT ABLE TO ANSWER QUESTIONS FOR THE ASSESSMENT APPROPRIATELY. PATIENTS SON IN THE ROOM AND INFORMS THAT THE PATIENT CURRENTLY RESIDES AT [facility] AND IS RECIEVEING SKILLED THERAPY. CM SPOKE TO BRYON WITH ADMISSIONS AT [facility] AND SHE INFORMS THAT THE FACILITY WILL ACCEPT THE PATIENT AT D/C. BRYON INFORMS THAT THE PATIENT'S PLANS [id number]. CM WILL REMAIN AVAILABLE TO ASSIST AND FOLLOW NEEDED.
--- NOTE | 2017-11-15 16:39 | NUR ---
PT NOT PROGRESSING TOWARDS GOALS THIS SHIFT. REMAINS CONFUSED AND IMPULSIVE. APPEARS TO BE HAVING AUDITORY AND VISUAL HALLUCINATIONS. DIFFICULTY FOLLOWING COMMANDS. STARTED IV ABTS THIS SHIFT. VSS. PT IS REFUSING TO EAT, REFUSING TURNS. NO OTHER CONCERNS AT THIS TIME. CLWR. WCTM.
[2017-11-16] VITALS (7 sets, daily range): BP systolic 87–162; BP diastolic 53–122
[2017-11-16 05:01] LABS: HEMATOCRIT 32.6 % (37.0-47.0); HEMOGLOBIN 11.1 gm/dL (12.0-15.0); MCHC 34.2 g/dL (28.0-37.0); MCV 108.3 fL (80.0-100.0); MPV 8.9 fl. (7.2-11.1); RBC 3.01 mil/uL (4.20-5.00); RDW-CV 15.5 % (10.5-14.5); WBC 8.2 thou/uL (4.0-11.0)
[2017-11-16 05:28] LABS: CALCIUM 9.6 mg/dL (8.5-10.1); MAGNESIUM 2.2 mg/dL (1.8-2.4); POTASSIUM 4.7 mmol/L (3.5-5.1); TOTAL BILIRUBIN 0.7 mg/dL (<0.1-1.0); TOTAL PROTEIN 6.6 g/dL (6.4-8.2)
--- NOTE | 2017-11-16 07:02 | NUR ---
Pt continues to pick at skin. Two dressings placed to newer skin tears to RUE. Pt appeared to be sleep sleep much of the night. Refused to be turned, though routinely checked for incontinence. Pt took po meds with minimal amount of water. BP elevated, though improved to 150s systolic by 0400. Pt moves arms during blood pressure checks, so difficult to get accurate readings. Will continue to monitor.
--- NOTE | 2017-11-16 10:48 | NUR ---
ASSUMED PT CARE AT 0730, FULL ASSESMENT DONE CHARTED. PT A/O X2, VERY CONFUSED, HALLUCINATING. SHE STATES SEVERAL TIMES THAT SHE HAS BEEN TALKING TO SOMEONE FROM A COMPANY BUT CANNOT TELL ME WHO THEY ARE OR WHAT THEY NEED. PT THINKS SHE IS SEEING THINGS ON HER FEET. PT HAVING INVOLUNTARY JERKING, UNABLE TO FEED SELF, USING THE BEDPAN, REFUSES TO TURN Q2 HR. FALL PRECATIONS MAINTAINED, CALL LIGHT IN REACH BUT PT DOES NOT USE IT APPROPRIATLY. ROUNDED ON FREQUENTLY. WILL CONTINUE TO MONITOR.
[2017-11-17] VITALS: BP 164/93
[2017-11-17 04:00] VITALS: BP 174/80
--- NOTE | 2017-11-17 05:10 | NUR ---
Pt continues to have hallucinations, though answers orientation questions accurately. BP 160s-170s/70s-80s. Denies pain. Incontinent of urine. Offered po liquids, and has improved intake from previous night. Refusing turns. Will continue to monitor.
[2017-11-17 07:45] VITALS: BP 176/91
[2017-11-17 11:30] VITALS: BP 141/65
--- NOTE | 2017-11-17 12:18 | NUR ---
SUDHEER WITH ADMISSION FROM [facility] HERE AT THE HOSPITAL TO SEE THE PATIENT. BRYON INFORMS THAT THE FACILITY IS STILL ABLE TO ACCEPT THE PATIENT AT D/C. CM INFORMS TATYANA THAT THE PATIENT IS NOT READY TO D/C AT THIS TIME. PATIENT TO HAVE TELE PSYCH EVAL TODAY, AND ST EVAL FOR COGNITION. CM WILL REMAIN AVAILABLE TO ASSIST AND FOLLOW NEEDED.
[2017-11-17 15:54] VITALS: BP 116/63
--- NOTE | 2017-11-17 19:52 | NUR ---
ASSUMED PT CARE AT 0730, FULL ASSESMENT DONE CHARTED. PT ORIENTED TO SELF AND SITUATION THIS AM, SHE IS STILL HAVING INVOLUNTARY SHAKING/JERKING OF ARMS, HANDS AND LEGS. PT HALLUCINATING, HAS SOME SPEECH THAT IS GARBLED MIXED WITH NORMAL SPEECH. PTS SON IN TO VISIT AROUND LUNCH TIME, PT CALMED DOWN MORE WITH HIM HERE, HE HELPED HER EAT SOME LUNCH. PT WAS ABLE TO SPEAK TO THE PSYCHIATRIST THIS AFTERNOON AND WAS WILLING TO GO TO MRI TODAY. PT STILL HAVING INVOULUNTARY JERKING, BUT IT DOES TO APPEAR TO BE LESS THIS EVENING, SHE HAS BEEN INCONTINANT OF URINE. ARMS COVERED IN SCABS AND SKIN TEARS, DRESSINGS CHANGED TODAY. PT DENIES PAIN, VSS, SR/BBB ON THE MONITOR. FALL PRECATUIONS IN PLACE, REPORT GIVEN TO STIVEN FLYNN.
[2017-11-17 20:00] VITALS: BP 170/94
[2017-11-18] VITALS: BP 163/89
[2017-11-18 04:00] VITALS: BP 147/89
--- NOTE | 2017-11-18 04:59 | NUR ---
PATIENT PARTIALLY PROGRESSING TOWARDS GOALS: PATIENT STILL HAS SOME INVOLUNTARY MOVEMENTS OF ARMS, LEGS, AND HANDS AND HALLUCINATIONS BUT MILD IMPROVEMENT NOTED THROUGHOUT SHIFT. PATIENT'S SPEECH GARBLED AT TIMES MIXED WITH NORMAL SPEECH. PATIENT INCONTINENT THROUGHOUT SHIFT, ETHAN CARE PROVIDED WITH INCONTINENCE CHECKS. PATIENT REPOSITIONED Q2H. PATIENT REMAINS ON ROOM AIR, VSS. CALL LIGHT WITHIN REACH
--- NOTE | 2017-11-18 07:45 | NUR ---
RECIEVED REPORT. ASSUMED CARE OF PT AT 0730. VSS. CARDIAC MONITORING IN PLACE SB [facility] BBB. AM ASSSESSMENT AND VITALS COMPLETED CHARTED. PT IS ALERT THIS AM. PT ORIENTED TO SELF PT SAYS SHE IS AT [facility] BUT THEN ASKS IF SHE IS IN [place]. PT HAS DISORGANIZED THOUGHTS. PT ALSO HAVING DIFFICULT TIME FEEDING SELF THIS AM. PT DENIES ANY COMPLAINTS OF PAIN OR DISCOMFORT THIS AM. IV SALINE LOCKED. BED ALARM ON FOR PT SAFETY. CALL LIGHT IS WITHIN REACH. WILL CONTINUE TO MONTIOR FOR DURATION OF SHIFT.
[2017-11-18 08:12] VITALS: BP 156/89
[2017-11-18 15:30] VITALS: BP 124/87
--- NOTE | 2017-11-18 16:42 | NUR ---
VSS. CARDIAC MONITORING IN PLACE WITH NO CHANGES THIS SHIFT. PT PROGRESSING TOWARDS GOALS. PT REMAINS ALERT AND AWAKE AND ORIENTED X2-3. PT'S SON VISITED AND REPORTS HOW WELL PT'S MENTATION IS TODAY COMPARED TO YESTERDAY. PT'S SON BROUGHT DPOA PAPERWORK. COPY PLACED ON CHART. PT CONTINUES TO HAVE ISSUES WITH HANDS/FINGERS AND INABILITY TO DO TASKS SUCH TAKE MEDICINE FROM MEDICINE CUP DUE TO DROPPING CUP AND PILLS. PER SON THIS IS ABNORMAL FOR PT. WILL CONTINUE TO MONITOR. PT INCONTINENT OF URINE. PT REPOSITIONED THIS SHIFT. PT HAS HAD NO COMPLAINTS OF PAIN OR DISCOMFORT THIS SHIFT. CALL LIGHT IS WITHIN REACH. WILL CONTINUE TO MONITOR FOR DURATION OF SHIFT.
[2017-11-18 19:50] VITALS: BP 154/78
[2017-11-19] VITALS: BP 141/80
--- NOTE | 2017-11-19 04:57 | NUR ---
A&O X2 CONFUSED AND FORGETFUL. MED SURGE STATUS. RA. UP WITH MAX ASSIST. SL. VITALS WNL. SEE MAR. SEE CHARTING. FALL PRECAUTIONS IN PLACE. HOURLY ROUNDING FOR SAFETY.
[2017-11-19 08:00] VITALS: BP 154/78
--- NOTE | 2017-11-19 10:00 | NUR ---
ASSUMED CARE OF PATIENT AFTER REPORT AT 0730. PT IS A&O4. VSS. PHYSICAL ASSESSMENT COMPLETED AND CHARTED. PT ON RA WITH 92% O2 SAT. IV LINE PATENT AND INTACT.PT ON MEDSURG STATUS. PT UP WITH 2 ASSIST. DENIES ANY PAIN OR COMPLAIN. CALL LIGHT WITHIN REACH. WILL CONTINUE TO MONITOR PT.
[2017-11-19 11:13] VITALS: BP 84/48
[2017-11-19 14:08] VITALS: BP 75/38
--- NOTE | 2017-11-19 14:13 | NUR ---
PT HAS COMPLAINTS OF EXTREME BURNING SENSATION TO UPPER AND LOWER EXTREMITIES. 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 SIMILAR REPONSE WHEN PT'S RIGHT LEG CAME INTO CONTACT WITH BED RAIL. WHEN PT WAS ASSISTED TO SIT AT THE EDGE OF BED THIS AM. PHYSICIAN NOTIFIED. ORDERS RECIEVED FOR NEURO CONSULT. PT WAS ASSISTED UP TO CHAIR BY PHYSCIAL THERAPY THIS AFTERNOON. PT'S BP CHECKED AND LOW 80'S/30'S PT REMAINS AWAKE AND ALERT. PT ASSISTED BACK TO BED AFTER A WHILE AND BP RECHECKED WHILE IN LYING POSITION. BP 70/30'S. DR. ROQUE NOTIFIED. ORDERS RECIEVED.
[2017-11-19 15:14] VITALS: BP 137/67
--- NOTE | 2017-11-19 18:40 | NUR ---
PT ALERT AND ORIENTED X4. RECHECKED BP 137/67. REINSERTED IV LINE L FOREARM. UP WITH 2 ASSIST. NEEDS HELP WHEN EATING AND TAKING MEDS. CALL LIGHT WITHIN REACH. WILL CONTINUE TO MONITOR PT.
[2017-11-19 19:50] VITALS: BP 131/69
[2017-11-20] VITALS: BP 144/67
--- NOTE | 2017-11-20 05:40 | NUR ---
A&O X2-4 CALM COOPERITVE. PT CONFUSED AT TIMES ABLE TO REORIENTATE. MED SURGE PT. PT IS MAX ASSIST TO CHAIR. RA. VITALS WNL. SEE MAR. SEE CHARTING. FALL PRECAUTIONS IN PLACE. HOURLY ROUNDING FOR SAFETY.
[2017-11-20 08:00] VITALS: BP 207/83
[2017-11-20 11:10] VITALS: BP 159/109
--- NOTE | 2017-11-20 11:42 | NUR ---
Pt discharging back to [facility] today. 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 Faxed dc orders. Chart copied. Nurse report number provided, . Updated Pt's son, son to bring a clean pair of clothes around 2pm today.
[2017-11-20] MEDS ORDERED: FOLIC ACID1 MG PO (14:29)
[2017-11-20] MEDS ORDERED: [UNRECOGNIZED DRUG - CODE] PO (14:34)
[2017-11-20] MEDS ORDERED: ZYPREXA2.5 MG PO (14:36)
[2017-11-20 14:41] VITALS: BP 159/109
--- NOTE | 2017-11-20 15:23 | NUR ---
RECEIVED REPORT FROM WILL. ASSUMED CARE OF PT AROUND 0730. PT ALERT AND ABLE TO ANSWER ORIENTATION QUESTIONS CORRECTLY, BUT IS FORGETFUL AND CONFUSED AT TIMES. PT M/S STATUS. TREMORS NOTED TO BUE. AM ASSESSMENT AND VITALS COMPLETED CHARTED. UPON ENTERING PT'S ROOM FOR ASSESSMENT THIS AM, PT HAD JUST SPILT HOT COFFEE ONTO HERSELF - GOWN QUICKLY REMOVED AND LINENS CHANGED. COLD COMPRESSESS APPLIED AND DR NOTIFIED. SILVER CREAM OBTAINED AND ADMINISTERED TO PT. PICTURES TAKEN - RIGHT SHOULDER, CHEST, AND RIGHT SIDE RED AND BLISTERED, WITH SOME SLOUGH NOTED. PT ASSISTED WITH MEALS - POOR APPETITE NOTED TODAY. PT HAS DENIED PAIN EXCEPT FOR BURN PAIN FROM SPILT COFFEE - COLD COMPRESSES AND SILVER CREAM HAVE PROVIDED SOME RELIEF. PT FELL AROUND 1110 WITH PHYSICAL THERAPY. POST FALL ASSESSMENT COMPLETED. NOTIFIED. PT DENIES PAIN FROM FALL. PT LEAVING THIS AFTERNOON TO [facility] - CHART COPY READY IN FOLDER. DISCHARGE SUMMARY IN FOLDER. PT AWARE OF NEUROLOGY F/U IN 2 WEEKS. MRI OF SPIN AND RIGHT SHOULDER COMPLETED. ALL BELONGINGS GATHERED AND READY TO SEND WITH PT. SON AT BEDSIDE. DISCHARGE PICTURES TAKEN. WRAP TO RIGHT FOREARM CHANGED. PT TO LEAVE UNIT IN WITH TRANSPORTER. PT TO LEAVE HOSPITAL IN [facility]AN WITH TRANSPORTER. PT CURRENTLY SITTING UP IN BED AWAITING TRANSPORT. FALL PRECAUTIONS IN PLACE. CALL LIGHT IS WITHIN REACH, HOURLY ROUNDING PERFORMED. [facility].
--- NOTE | 2017-11-20 16:29 | NUR ---
WOUND NURSE: PATIENT SEEN TODAY TO ADDRESS BURN LESIONS WHICH OCCURRED AFTER PATIENT SPILLED COFFEE ON HERSELF TODAY. A RESULT SHE HAS A LARGE AREA OVER THE RIGHT CHEST WALL AND UNDER AXILLA WITH INTACT SEROUS FILLED BULLAE. PATIENT WAS PRESCRIBED SILVADENE BY PHYSICIAN. PATIENT WAS APPROVED TO BE SEEN IN THE [facility] HERE AND WAS SCHEDULED FOR THIS MONDAY A 9AM.
--- NOTE | 2017-11-20 16:55 | NUR ---
I have reviewed the documentation by AMINAH PERSAUD from TODAY to 11/20/17 and I concur with it. GUADALUPE VALDIVIA
--- NOTE | 2017-12-04 09:34 | CON ---
[address] [address] CONSULTATION Name: ROMULO WHITMAN Room: [address] IN M.R.#: [id number] Admission: 11/14/17 Attend Phys: Sandro Wong MD Discharge: 11/20/17 Date of : 46 Report #: [id number] THIS REPORT FOR: //name// CC: Darren Wong DATE OF SERVICE: 11/19/2017 HISTORY OF PRESENT ILLNESS: This is a 67-year-old female patient who was evaluated by me for possible neuropathy of the upper extremity. This patient's history is pretty complicated. She was admitted with altered mental status and looks like she may have taken too much gabapentin or had had some other polypharmacy. Her mental status has improved, but the patient does appear to have pretty significant ataxia. She also has what looks like weakness in the left upper extremity. History is not clear as far as the duration is concerned, but she gives a history that till a few months ago she was driving and taking care of herself. These symptoms started spontaneously without much trauma, but were associated with significant GI as well as kidney problems. REVIEW OF SYSTEMS: Indicate that this patient was admitted with encephalopathy secondary to medication. She did have GI issues and review of the records indicate that she also had nausea and vomiting. 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 I need to confirm that history. She does have some hypokalemia and hyponatremia and she does have a pretty significant kidney dysfunction with GFR is only 25 now. She is complaining of paresthesias in both hands and she insists that is relatively recent. I carried out 14-point review of systems in this patient. She does not think she has any new eye or ENT issues. She does have trouble with vomiting and problems, electrolyte problems, previously she had platelet issues, and urinary tract infection. She denies any cardiac or respiratory symptoms. She does not have any new musculoskeletal, constitutional, dermatological, hematological, psychiatric, throat, or allergic symptom. PAST MEDICAL HISTORY: Pretty extensive, but they are all of recent onset. FAMILY HISTORY: Negative for any strokes, which happened early in life. SOCIAL HISTORY: She went to prison facility before that she was independent. She denies the use of alcohol. PHYSICAL EXAMINATION: The patient's examinations indicate that the patient is alert, responsive and follows simple commands. Memory and fund of knowledge is poor, but she has improved. Speech looks unremarkable. Cranial nerve examination 2-12 looks unremarkable. She moves all 4 extremities, but left upper extremity she cannot take it up and she appeared to be somewhat ataxic in all 4 extremities. She did poorly on position sense, [place] [address] CONSULTATION Name: ROMULO WHITMAN Room: [address] IN M.R.#: [id number] Admission: 11/14/17 Attend Phys: Sandro Wong MD Discharge: 11/20/17 Date of : 46 Report #: [id number] Reflexes are somewhat diminished, but I do not know what her baseline is. Tone is unremarkable. I could not look at the patient's fundus. She is a moderately well-built individual who does not have any dysmorphic features of eyes, ears, and face. Her pulses are difficult to feel. She has no edema, cyanosis, or jaundice. No cardiac abnormalities. No respiratory difficulty or rhonchi. Blood pressure is 154/78, respirations 17, pulse is , and temperature is 98.2. LABORATORY DATA: White count of 8.2, but the patient does have increased MCV. Her B12 was checked and was normal and she indicates she does not drink alcohol. She did have an MRI of the brain, which was reviewed, which does not show any acute changes. IMPRESSION: A single diagnosis will not be able to explain the patient's symptoms. She does have what looks like ataxia and she does have kidney dysfunction and she had gastrointestinal dysfunction. All of them can cause Wernicke's encephalopathy and I think we will give her thiamine, but she also is not able to move her left upper extremity well and she is having paresthesias in the hand. That need further workup. Further workup we need to do to see if she has a carpal tunnel syndrome or neuropathy or radiculopathy. Unfortunately, we do not have an EMG machine in the office. MRI of the C-spine is ordered and I agree with it and I will suggest getting shoulder done at the same time, but a good test for her is an EMG whenever it can be accomplished. RECOMMENDATIONS: 1. Thiamine. 2. Nutritional support. 3. Correction of metabolic problems including renal. 4. Work with PT and OT if MRI of the C-spine and shoulder is okay. 5. We need to schedule her for EMG sometime. Thank you very much for this referral. <ELECTRONICALLY SIGNED> By: Carlos Hayes MD 12/04/17 0934 1150 1402Preza Hayes MD /nt
[2018-02-19] MEDS ORDERED: CENTRUM SILVER1 EAC4 PO (06:54)
[2018-02-19] MEDS ORDERED: VITAMINC500 PO (06:55)
[2018-02-19] MEDS ORDERED: NORCO 5-325 TA1 EACH PO (06:55)
[2018-02-19] MEDS ORDERED: TYLENOL325 MG PO (06:56)
[2018-02-19] MEDS ORDERED: MIRALAX17 GM PO (10:49)
[2018-02-19] MEDS ORDERED: LIDOCAINE TRANSDERM (10:52)
[2018-02-19] MEDS ORDERED: IMIPENEM-CILAS500 MG IV (10:54)
== END 2017-11-20 16:36 | DRG 917 ==
LOC: M.ERS 13:04 → M.2W 14:19 → M.TBA-ER 14:19 → M.2W 15:26
PROVIDERS: Family Medicine; ADMIT Internal Medicine
DX: T50.901A Poisoning by unspecified drugs, medicaments and biological substances, accidental (unintentional), initial encounter (principal); G92 Toxic encephalopathy; N17.0 Acute kidney failure with tubular necrosis; E87.1 Hypo-osmolality and hyponatremia; E80.29 Other porphyria; F17.210 Nicotine dependence, cigarettes, uncomplicated; E87.6 Hypokalemia; K59.09 Other constipation; R27.0 Ataxia, unspecified; K29.70 Gastritis, unspecified, without bleeding; I12.9 Hypertensive chronic kidney disease with stage 1 through stage 4 chronic kidney disease, or unspecified chronic kidney disease; E53.8 Deficiency of other specified B group vitamins; G62.9 Polyneuropathy, unspecified; N18.2 Chronic kidney disease, stage 2 (mild); Z90.710 Acquired absence of both cervix and uterus; Z79.899 Other long term (current) drug therapy; Z88.1 Allergy status to other antibiotic agents; Z88.0 Allergy status to penicillin; Z88.8 Allergy status to other drugs, medicaments and biological substances; Y92.89 Other specified places as the place of occurrence of the external cause

== ENCOUNTER → 2017-11-22 | Outpatient (CLI) | payer MEDICARE, OTHER ==
[~2017-11-22] MED LIST changes: +CENTRUM SILVER1 EAC4 PO; +FOLIC ACID1 MG PO; +IMIPENEM-CILAS500 MG IV; +LIDOCAINE TRANSDERM; +NORCO 5-325 TA1 EACH PO; +TYLENOL325 MG PO; +VITAMINC500 PO; +ZYPREXA2.5 MG PO; +[UNRECOGNIZED DRUG - CODE] PO
== END ==
LOC: M.WC 08:41
DX: T22.30XA Burn of third degree of shoulder and upper limb, except wrist and hand, unspecified site, initial encounter (principal); T22.3 Burn of third degree of shoulder and upper limb, except wrist and hand; T31.0 Burns involving less than 10% of body surface; F31.0 Bipolar disorder, current episode hypomanic; K21.9 Gastro-esophageal reflux disease without esophagitis; I10 Essential (primary) hypertension; G47.33 Obstructive sleep apnea (adult) (pediatric); F17.200 Nicotine dependence, unspecified, uncomplicated; Z68.22 Body mass index [BMI] 22.0-22.9, adult; Z90.710 Acquired absence of both cervix and uterus; X08.8XXA Exposure to other specified smoke, fire and flames, initial encounter; Y93.89 Activity, other specified; Y92.89 Other specified places as the place of occurrence of the external cause; Y99.8 Other external cause status

== ENCOUNTER → 2017-11-30 | Outpatient (CLI) | payer MEDICARE | LOC: M.WC 03:55 | DX: T22.291D Burn of second degree of multiple sites of right shoulder and upper limb, except wrist and hand, subsequent encounter (principal); S81.011A Laceration without foreign body, right knee, initial encounter; F31.0 Bipolar disorder, current episode hypomanic; K21.9 Gastro-esophageal reflux disease without esophagitis; I10 Essential (primary) hypertension; G47.33 Obstructive sleep apnea (adult) (pediatric); T31.0 Burns involving less than 10% of body surface; F17.210 Nicotine dependence, cigarettes, uncomplicated; Z90.710 Acquired absence of both cervix and uterus; Z68.22 Body mass index [BMI] 22.0-22.9, adult; X08.8XXD Exposure to other specified smoke, fire and flames, subsequent encounter; X58.XXXA Exposure to other specified factors, initial encounter; Y93.89 Activity, other specified; Y92.89 Other specified places as the place of occurrence of the external cause; Y99.8 Other external cause status ==

== ENCOUNTER → 2017-12-07 | Outpatient (CLI) | payer MEDICARE | LOC: M.WC 02:06 | DX: T22.341D Burn of third degree of right axilla, subsequent encounter (principal); S81.011A Laceration without foreign body, right knee, initial encounter; F32.9 Major depressive disorder, single episode, unspecified; G47.30 Sleep apnea, unspecified; I10 Essential (primary) hypertension; K21.9 Gastro-esophageal reflux disease without esophagitis; T31.0 Burns involving less than 10% of body surface; F17.210 Nicotine dependence, cigarettes, uncomplicated; Z90.710 Acquired absence of both cervix and uterus; X08.8XXD Exposure to other specified smoke, fire and flames, subsequent encounter; X58.XXXA Exposure to other specified factors, initial encounter; Y93.89 Activity, other specified; Y92.89 Other specified places as the place of occurrence of the external cause; Y99.8 Other external cause status ==

== ENCOUNTER → 2017-12-21 | Outpatient (CLI) | payer MEDICARE | LOC: M.WC 03:44 | DX: S81.001A Unspecified open wound, right knee, initial encounter (principal); T22.30XD Burn of third degree of shoulder and upper limb, except wrist and hand, unspecified site, subsequent encounter; T31.0 Burns involving less than 10% of body surface; T21.31XD Burn of third degree of chest wall, subsequent encounter; T22.341D Burn of third degree of right axilla, subsequent encounter; L84 Corns and callosities; I10 Essential (primary) hypertension; K21.9 Gastro-esophageal reflux disease without esophagitis; G47.30 Sleep apnea, unspecified; F17.200 Nicotine dependence, unspecified, uncomplicated; F41.9 Anxiety disorder, unspecified; F32.9 Major depressive disorder, single episode, unspecified; Z90.710 Acquired absence of both cervix and uterus; X58.XXXA Exposure to other specified factors, initial encounter; X08.8XXD Exposure to other specified smoke, fire and flames, subsequent encounter; Y93.89 Activity, other specified; Y92.89 Other specified places as the place of occurrence of the external cause; Y99.8 Other external cause status ==

== ENCOUNTER → 2017-12-29 | Outpatient (CLI) | payer MEDICARE | LOC: M.WC 12-28 10:00 | DX: T22.20XD Burn of second degree of shoulder and upper limb, except wrist and hand, unspecified site, subsequent encounter (principal); T21.21XD Burn of second degree of chest wall, subsequent encounter; T22.2 Burn of second degree of shoulder and upper limb, except wrist and hand; T31.0 Burns involving less than 10% of body surface; S81.011D Laceration without foreign body, right knee, subsequent encounter; I10 Essential (primary) hypertension; L84 Corns and callosities; G47.30 Sleep apnea, unspecified; K21.9 Gastro-esophageal reflux disease without esophagitis; F32.9 Major depressive disorder, single episode, unspecified; F41.9 Anxiety disorder, unspecified; F17.200 Nicotine dependence, unspecified, uncomplicated; Z90.710 Acquired absence of both cervix and uterus; X08.8XXD Exposure to other specified smoke, fire and flames, subsequent encounter; X58.XXXD Exposure to other specified factors, subsequent encounter ==

== ENCOUNTER → 2018-01-05 | Outpatient (CLI) | payer MEDICARE | LOC: M.WC 01:22 | DX: S81.011D Laceration without foreign body, right knee, subsequent encounter (principal); T22.20XD Burn of second degree of shoulder and upper limb, except wrist and hand, unspecified site, subsequent encounter; T21.21XD Burn of second degree of chest wall, subsequent encounter; T22.2 Burn of second degree of shoulder and upper limb, except wrist and hand; T31.0 Burns involving less than 10% of body surface; I10 Essential (primary) hypertension; G47.30 Sleep apnea, unspecified; K21.9 Gastro-esophageal reflux disease without esophagitis; J42 Unspecified chronic bronchitis; F17.200 Nicotine dependence, unspecified, uncomplicated; F32.9 Major depressive disorder, single episode, unspecified; Z90.710 Acquired absence of both cervix and uterus; X58.XXXD Exposure to other specified factors, subsequent encounter; X08.8XXD Exposure to other specified smoke, fire and flames, subsequent encounter ==

== ENCOUNTER → 2018-01-12 | Outpatient (CLI) | payer MEDICARE | LOC: M.WC 01:59 | DX: T22.30XD Burn of third degree of shoulder and upper limb, except wrist and hand, unspecified site, subsequent encounter (principal); T31.0 Burns involving less than 10% of body surface; T22.341D Burn of third degree of right axilla, subsequent encounter; T21.31XD Burn of third degree of chest wall, subsequent encounter; S81.011D Laceration without foreign body, right knee, subsequent encounter; L84 Corns and callosities; I10 Essential (primary) hypertension; K21.9 Gastro-esophageal reflux disease without esophagitis; G47.33 Obstructive sleep apnea (adult) (pediatric); F17.200 Nicotine dependence, unspecified, uncomplicated; F41.9 Anxiety disorder, unspecified; F32.9 Major depressive disorder, single episode, unspecified; Z90.710 Acquired absence of both cervix and uterus; X10.0XXD Contact with hot drinks, subsequent encounter; X58.XXXD Exposure to other specified factors, subsequent encounter ==

== ENCOUNTER → 2018-01-19 | Outpatient (CLI) | payer MEDICARE | LOC: M.WC 03:43 | DX: T22.20XD Burn of second degree of shoulder and upper limb, except wrist and hand, unspecified site, subsequent encounter (principal); T31.0 Burns involving less than 10% of body surface; T21.21XD Burn of second degree of chest wall, subsequent encounter; T22.2 Burn of second degree of shoulder and upper limb, except wrist and hand; L84 Corns and callosities; G47.30 Sleep apnea, unspecified; K21.9 Gastro-esophageal reflux disease without esophagitis; F17.200 Nicotine dependence, unspecified, uncomplicated; F41.9 Anxiety disorder, unspecified; F32.9 Major depressive disorder, single episode, unspecified; Z90.710 Acquired absence of both cervix and uterus; X08.8XXD Exposure to other specified smoke, fire and flames, subsequent encounter ==

== ENCOUNTER → 2018-01-26 | Outpatient (CLI) | payer MEDICARE | LOC: M.WC 01:59 | DX: T22.20XD Burn of second degree of shoulder and upper limb, except wrist and hand, unspecified site, subsequent encounter (principal); T31.0 Burns involving less than 10% of body surface; T21.21XD Burn of second degree of chest wall, subsequent encounter; T22.2 Burn of second degree of shoulder and upper limb, except wrist and hand; S81.011D Laceration without foreign body, right knee, subsequent encounter; L84 Corns and callosities; I10 Essential (primary) hypertension; K21.9 Gastro-esophageal reflux disease without esophagitis; G47.30 Sleep apnea, unspecified; J42 Unspecified chronic bronchitis; F17.200 Nicotine dependence, unspecified, uncomplicated; F41.9 Anxiety disorder, unspecified; F32.9 Major depressive disorder, single episode, unspecified; Z90.710 Acquired absence of both cervix and uterus; X08.8XXD Exposure to other specified smoke, fire and flames, subsequent encounter; X58.XXXD Exposure to other specified factors, subsequent encounter ==

== ENCOUNTER → 2018-01-30 | Outpatient (CLI) | payer MEDICARE, MEDICAID | LOC: M.MRI 01-24 13:30 | DX: M51.34 Other intervertebral disc degeneration, thoracic region (principal); G62.9 Polyneuropathy, unspecified; R29.898 Other symptoms and signs involving the musculoskeletal system; R26.9 Unspecified abnormalities of gait and mobility; I10 Essential (primary) hypertension ==

== ENCOUNTER → 2018-02-09 | Outpatient (CLI) | payer MEDICARE | LOC: M.WC 02:55 | DX: T22.331D Burn of third degree of right upper arm, subsequent encounter (principal); T21.31XD Burn of third degree of chest wall, subsequent encounter; T22.341D Burn of third degree of right axilla, subsequent encounter; S81.011D Laceration without foreign body, right knee, subsequent encounter; L84 Corns and callosities; G47.33 Obstructive sleep apnea (adult) (pediatric); I10 Essential (primary) hypertension; J42 Unspecified chronic bronchitis; K21.9 Gastro-esophageal reflux disease without esophagitis; F31.0 Bipolar disorder, current episode hypomanic; F17.200 Nicotine dependence, unspecified, uncomplicated; Z90.710 Acquired absence of both cervix and uterus; T31.0 Burns involving less than 10% of body surface; X58.XXXD Exposure to other specified factors, subsequent encounter; X10.0XXD Contact with hot drinks, subsequent encounter ==

== ENCOUNTER → 2018-02-12 | Outpatient (CLI) | payer MEDICARE ==
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
== END ==
LOC: M.WC 01:42
DX: T22.30XD Burn of third degree of shoulder and upper limb, except wrist and hand, unspecified site, subsequent encounter (principal); T21.31XD Burn of third degree of chest wall, subsequent encounter; T22.341D Burn of third degree of right axilla, subsequent encounter; T31.0 Burns involving less than 10% of body surface; G47.33 Obstructive sleep apnea (adult) (pediatric); I10 Essential (primary) hypertension; J42 Unspecified chronic bronchitis; K21.9 Gastro-esophageal reflux disease without esophagitis; F31.0 Bipolar disorder, current episode hypomanic; F17.200 Nicotine dependence, unspecified, uncomplicated; Z90.710 Acquired absence of both cervix and uterus; X10.0XXD Contact with hot drinks, subsequent encounter

== ENCOUNTER → 2018-02-19 | Day surgery (SDC) | payer MEDICARE, MEDICAID ==
[2018-02-19 10:35] LABS: MCHC 33.3 g/dL (28.0-37.0); MCV 93.1 fL (80.0-100.0); MPV 7.6 fl. (7.2-11.1); RBC 3.55 mil/uL (4.20-5.00); RDW-CV 14.3 % (10.5-14.5); WBC 10.9 thou/uL (4.0-11.0)
[2018-02-19 10:44] LABS: CALCIUM 9.2 mg/dL (8.5-10.1); CREATININE 1.3 mg/dL (0.6-1.3); POTASSIUM 3.8 mmol/L (3.5-5.1)
--- NOTE | 2018-03-05 07:57 | OP ---
[address] [address] OPERATIVE REPORT Name: WHITMANROMULO A Room: [facility]#: [id number] Admission: 02/19/18 Attend Phys: Ellen Jo MD Discharge: Date of : 46 Report #: [id number] THIS REPORT FOR: //name// CC: Darren Pepe MD PREOPERATIVE DIAGNOSIS: Deep second degree avalos to the right upper arm, length 4.5 cm, width 9.5 cm, right lower axilla 4 cm x 2 cm and then right upper chest, 5.5 cm x 2.5 cm. POSTOPERATIVE DIAGNOSIS: Deep second degree avalos to the right upper arm, length 4.5 cm, width 9.5 cm, right lower axilla 4 cm x 2 cm and then right upper chest, 5.5 cm x 2.5 cm. OPERATIVE PROCEDURE: Split thickness skin graft to those sites with application of a negative pressure wound therapy device for the donor and graft sites. ANESTHESIA: Laryngeal mass with 0.25% Marcaine with epinephrine. DESCRIPTION OF PROCEDURE: The patient was placed under laryngeal mask anesthesia and the right upper chest, axilla and arm, which had the open wounds were carefully prepped and draped in a sterile fashion. Timeout taken. Antibiotics were administered. On the left anterior chest wall just into the inframammary crease, a 0.2 mm depth x 4 cm width dermatone was used to excise past 3 times to take enough skin to place through the 1 x 1.5 mesher and laid across all 3 wounds and spread and stapled into place with 3-0 chromics as well. Once the grafting and the meshing and placement on the wound beds was accomplished, adaptic was placed over all 3 wound sites and then Xeroform was placed on the donor site, then BARTOLOME was placed on the right upper arm, which was a 10 x 20 cm with good seal. The 10 x 30 cm BARTOLOME was placed across the upper chest and lower axilla as one total piece and then a 20 x 20 cm BARTOLOME was placed over the left anterior chest wall with good negative seal, ending the operative procedure. ESTIMATED BLOOD LOSS: 5 mL. There were no complications. The patient was transferred from the operative room to the recovery room in stable condition. Of note, before closure, I injected under the subdermal skin on the donor site with 20 mL of the Marcaine, epinephrine mixture. <ELECTRONICALLY SIGNED> By: Ellen Jo MD 03/05/18 0757 1242 1258Ellen Jo MD /nt
== END | disposition home or self-care (01) ==
LOC: M.SUR 10:12
PROVIDERS: Surgery
DX: T22.20XA Burn of second degree of shoulder and upper limb, except wrist and hand, unspecified site, initial encounter (principal); T22.241A Burn of second degree of right axilla, initial encounter; T21.21XA Burn of second degree of chest wall, initial encounter; I21.9 Acute myocardial infarction, unspecified; D69.6 Thrombocytopenia, unspecified; N17.9 Acute kidney failure, unspecified; Z79.899 Other long term (current) drug therapy; Z88.0 Allergy status to penicillin; Z88.8 Allergy status to other drugs, medicaments and biological substances; Z90.710 Acquired absence of both cervix and uterus

== ENCOUNTER → 2018-02-26 | Outpatient (CLI) | payer MEDICARE, MEDICAID | LOC: M.WC 00:51 | DX: T86.828 Other complications of skin graft (allograft) (autograft) (principal); T22.30XD Burn of third degree of shoulder and upper limb, except wrist and hand, unspecified site, subsequent encounter; T21.31XD Burn of third degree of chest wall, subsequent encounter; T22.341D Burn of third degree of right axilla, subsequent encounter; T31.0 Burns involving less than 10% of body surface; I10 Essential (primary) hypertension; J42 Unspecified chronic bronchitis; K21.9 Gastro-esophageal reflux disease without esophagitis; G47.33 Obstructive sleep apnea (adult) (pediatric); F31.0 Bipolar disorder, current episode hypomanic; F17.200 Nicotine dependence, unspecified, uncomplicated; Z90.710 Acquired absence of both cervix and uterus; X08.8XXD Exposure to other specified smoke, fire and flames, subsequent encounter; Y83.2 Surgical operation with anastomosis, bypass or graft as the cause of abnormal reaction of the patient, or of later complication, without mention of misadventure at the time of the procedure ==

== ENCOUNTER → 2018-03-05 | Outpatient (CLI) | payer MEDICARE | LOC: M.WC 01:22 | DX: T86.828 Other complications of skin graft (allograft) (autograft) (principal); T22.30XD Burn of third degree of shoulder and upper limb, except wrist and hand, unspecified site, subsequent encounter; T21.31XD Burn of third degree of chest wall, subsequent encounter; T22.341D Burn of third degree of right axilla, subsequent encounter; T31.0 Burns involving less than 10% of body surface; K21.9 Gastro-esophageal reflux disease without esophagitis; G47.33 Obstructive sleep apnea (adult) (pediatric); I10 Essential (primary) hypertension; J42 Unspecified chronic bronchitis; F31.0 Bipolar disorder, current episode hypomanic; F17.200 Nicotine dependence, unspecified, uncomplicated; Z90.710 Acquired absence of both cervix and uterus; X08.8XXD Exposure to other specified smoke, fire and flames, subsequent encounter ==

== ENCOUNTER → 2018-03-08 | Outpatient (CLI) | payer MEDICARE ==
[2018-03-08 14:15] LABS: URINE BILIRUBIN NEGATIVE (Negative); URINE BLOOD NEGATIVE (Negative); URINE COLOR YELLOW; URINE GLUCOSE-RANDOM NEGATIVE (Negative); URINE KETONES NEGATIVE (Negative); URINE LEUKOCYTES-REFLEX TRACE (Negative); URINE NITRITE-REFLEX NEGATIVE (Negative); URINE PROTEIN NEGATIVE (Negative); URINE UROBILINOGEN 0.2 E.U./dl (0.2-1.0)
[2018-03-08 14:16] LABS: URINE CLARITY HAZY
[2018-03-08 14:23] LABS: SQUAMOUS 4-10 Moderate /LPF (0-3); URINE WBC-REFLEX >25 Many /HPF (0-5)
[2018-03-08 14:24] LABS: URINE RBC None Seen /HPF (0-2)
[2018-03-08 14:25] LABS: BACTERIA-REFLEX 1-9 Few /HPF (None Seen); CASTS None Seen /LPF (None Seen); CRYSTALS None Seen /LPF (None Seen)
== END ==
LOC: M.LAB 11:00
PROVIDERS: Internal Medicine
DX: N39.0 Urinary tract infection, site not specified (principal)

== ENCOUNTER → 2018-03-12 | Outpatient (CLI) | payer MEDICARE | LOC: M.WC 01:56 | DX: T22.30XD Burn of third degree of shoulder and upper limb, except wrist and hand, unspecified site, subsequent encounter (principal); T21.31XD Burn of third degree of chest wall, subsequent encounter; T22.341D Burn of third degree of right axilla, subsequent encounter; T31.0 Burns involving less than 10% of body surface; G47.33 Obstructive sleep apnea (adult) (pediatric); I10 Essential (primary) hypertension; J42 Unspecified chronic bronchitis; K21.9 Gastro-esophageal reflux disease without esophagitis; F31.0 Bipolar disorder, current episode hypomanic; F17.200 Nicotine dependence, unspecified, uncomplicated; Z90.710 Acquired absence of both cervix and uterus; T79.8XXD Other early complications of trauma, subsequent encounter; X08.8XXD Exposure to other specified smoke, fire and flames, subsequent encounter ==

== ENCOUNTER → 2018-03-19 | Outpatient (CLI) | payer MEDICARE | LOC: M.WC 01:48 | DX: T22.30XD Burn of third degree of shoulder and upper limb, except wrist and hand, unspecified site, subsequent encounter (principal); T21.31XD Burn of third degree of chest wall, subsequent encounter; T22.341D Burn of third degree of right axilla, subsequent encounter; T31.0 Burns involving less than 10% of body surface; G47.33 Obstructive sleep apnea (adult) (pediatric); I10 Essential (primary) hypertension; J42 Unspecified chronic bronchitis; K21.9 Gastro-esophageal reflux disease without esophagitis; F17.200 Nicotine dependence, unspecified, uncomplicated; F31.0 Bipolar disorder, current episode hypomanic; Z90.710 Acquired absence of both cervix and uterus; X08.8XXD Exposure to other specified smoke, fire and flames, subsequent encounter ==

== ENCOUNTER → 2018-04-02 | Outpatient (CLI) | payer MEDICARE | LOC: M.WC 01:03 | DX: T86.828 Other complications of skin graft (allograft) (autograft) (principal); T22.30XD Burn of third degree of shoulder and upper limb, except wrist and hand, unspecified site, subsequent encounter; T21.31XD Burn of third degree of chest wall, subsequent encounter; T22.341D Burn of third degree of right axilla, subsequent encounter; T31.0 Burns involving less than 10% of body surface; S41.131D Puncture wound without foreign body of right upper arm, subsequent encounter; G47.33 Obstructive sleep apnea (adult) (pediatric); I10 Essential (primary) hypertension; J42 Unspecified chronic bronchitis; K21.9 Gastro-esophageal reflux disease without esophagitis; F31.0 Bipolar disorder, current episode hypomanic; F17.200 Nicotine dependence, unspecified, uncomplicated; Z90.710 Acquired absence of both cervix and uterus; X08.8XXD Exposure to other specified smoke, fire and flames, subsequent encounter; X58.XXXD Exposure to other specified factors, subsequent encounter; Y83.2 Surgical operation with anastomosis, bypass or graft as the cause of abnormal reaction of the patient, or of later complication, without mention of misadventure at the time of the procedure ==

== ENCOUNTER → 2018-04-16 | Outpatient (CLI) | payer MEDICARE | LOC: M.WC 01:01 | DX: T86.828 Other complications of skin graft (allograft) (autograft) (principal); T22.30XD Burn of third degree of shoulder and upper limb, except wrist and hand, unspecified site, subsequent encounter; T21.31XD Burn of third degree of chest wall, subsequent encounter; T22.341D Burn of third degree of right axilla, subsequent encounter; T31.0 Burns involving less than 10% of body surface; F17.200 Nicotine dependence, unspecified, uncomplicated; G47.33 Obstructive sleep apnea (adult) (pediatric); I10 Essential (primary) hypertension; J42 Unspecified chronic bronchitis; K21.9 Gastro-esophageal reflux disease without esophagitis; F31.0 Bipolar disorder, current episode hypomanic; Z90.710 Acquired absence of both cervix and uterus; X08.8XXD Exposure to other specified smoke, fire and flames, subsequent encounter; Y83.2 Surgical operation with anastomosis, bypass or graft as the cause of abnormal reaction of the patient, or of later complication, without mention of misadventure at the time of the procedure ==

== ENCOUNTER → 2018-04-30 | Outpatient (CLI) | payer MEDICARE ==
[~2018-04-30] MED LIST changes: +ASPERCREME76.5 GM TOP; +RIFAMPIN 300 M300 M1 PO
== END ==
LOC: M.WC 00:58
DX: T22.30XD Burn of third degree of shoulder and upper limb, except wrist and hand, unspecified site, subsequent encounter (principal); T21.31XD Burn of third degree of chest wall, subsequent encounter; T22.341D Burn of third degree of right axilla, subsequent encounter; T31.0 Burns involving less than 10% of body surface; G47.33 Obstructive sleep apnea (adult) (pediatric); I10 Essential (primary) hypertension; J42 Unspecified chronic bronchitis; K21.9 Gastro-esophageal reflux disease without esophagitis; F31.0 Bipolar disorder, current episode hypomanic; F17.200 Nicotine dependence, unspecified, uncomplicated; Z90.710 Acquired absence of both cervix and uterus; X08.8XXD Exposure to other specified smoke, fire and flames, subsequent encounter

== ENCOUNTER 2018-05-02 13:20 | Inpatient (IN) | payer MEDICARE, MEDICAID ==
[~2018-05-02] VITALS: Ht 180.3 cm; Wt 64.4 kg
--- NOTE | ~2018-05-02 | CON ---
[address] [address] CONSULTATION Name: ROMULO WHITMAN Room: [address] IN M.R.#: [id number] Admission: 05/02/18 Attend Phys: Duc Alexander MD Discharge: 05/07/18 Date of : 48 Report #: [id number] THIS REPORT FOR: //name// CC: Duc Banks [facility] DATE OF SERVICE: 05/03/2018 REFERRING PHYSICIAN: Duc Alexander MD REASON FOR CONSULTATION: 1. Fecal impaction causing issues with abdominal discomfort and bladder outlet obstruction. 2. Chronic pain syndrome, requiring chronic narcotics. RECOMMENDATIONS: 1. I reviewed the patient's CT scan, which does reveal evidence for a large fecal impaction without evidence for colonic obstruction. We will proceed with fecal disimpaction while the patient is sedated and then proceed with bowel preparation followed by colonoscopy during her hospital stay. I have discussed the plans with the patient as well and she is agreeable to the same history. 2. She will also need to go on some type of bowel regimen upon discharge. HISTORY OF PRESENT ILLNESS: The patient is an unfortunate 67-year-old white female who was admitted to hospital with complaints of abdominal pain, nausea, vomiting, and inability to go to the bathroom. She is currently living in a prison. She states she has had problem with chronic constipation and is on chronic pain medication, which makes things worse for her. She also has problems with not being very mobile. She has a history of porphyria, but this is not well documented. She states she has had endoscopic studies of her lower GI tract in the past, but it has been a number of years since her last examination. She is admitted to the hospital with these complaints. ALLERGIES: METRONIDAZOLE, PENICILLIN, PROCHLORPERAZINE, and BENZODIAZEPINE. MEDICATIONS: Include clonidine, pantoprazole, gabapentin, folic acid, Rifampin, ondansetron, multivitamin, ascorbic acid, [place], Tylenol, and MiraLax. PAST MEDICAL AND SURGICAL HISTORY: Remarkable for hypertension, peripheral neuropathy, chronic reflux. She has had problems with chronic constipation . She had previous hysterectomy in the past as well. She has avalos on her chest and arms with MRSA. SOCIAL HISTORY: She is a former smoker, previously smoked, quit smoking less than a year ago. [place] [address] CONSULTATION Name: ROMULO WHITMAN Piyush Room: [address]#: [id number] Admission: 05/02/18 Attend Phys: Duc Alexander MD Discharge: 05/07/18 Date of : 48 Report #: [id number] FAMILY HISTORY: Negative. PHYSICAL EXAMINATION: GENERAL: Revealed ill-appearing 67-year-old white female who is awake and alert. CARDIOPULMONARY: Revealed a regular rate and rhythm. LUNGS: Clear. ABDOMEN: Soft and nondistended. No rebound or guarding noted. DISCUSSION: At the present time, the patient has fecal impaction on CT scan. We will proceed with disimpaction of same and make further recommendations thereafter. By: [id number] Rutledge DO /nt
--- NOTE | ~2018-05-02 | PROC ---
[address] [address] PROCEDURE REPORT Name: ROMULO WHITMAN Room: [address] IN .R.#: [id number] Admission: 05/02/18 Attend Phys: Duc Alexander MD Discharge: 05/07/18 Date of : 48 Report #: [id number] THIS REPORT FOR: //name// For GI report, please see the report in Perceptive 7 content. By: 1500Medical Records Staff MOMO /STEVEN
[~2018-05-02 13:20] MED LIST changes: -ASPERCREME76.5 GM TOP; -RIFAMPIN 300 M300 M1 PO
[2018-05-02 13:22] VITALS: BP 174/82
[2018-05-02] MEDS ORDERED: RIFAMPIN 300 M300 M1 PO (13:40)
[2018-05-02] MEDS ORDERED: ASPERCREME76.5 GM TOP (13:41)
[2018-05-02 14:18] LABS: ABSOLUTE EOSINOPHILS 0.1 thou/uL (0.0-0.7); ABSOLUTE LYMPHOCYTES 1.9 thou/uL (0.8-5.3); ABSOLUTE MONOCYTES 0.4 thou/uL (0.0-1.2); ABSOLUTE NEUTROPHILS 4.8 thou/uL (1.6-8.1); BASOPHILS 0.3 %; EOSINOPHILS 1.8 %; HEMATOCRIT 32.9 % (37.0-47.0); HEMOGLOBIN 10.9 gm/dL (12.0-15.0); LYMPHOCYTES 26.2 %; MCH 30.2 pg (26.0-34.0); MCV 91.5 fL (80.0-100.0); MONOCYTES 6.1 %; MPV 8.1 fl. (7.2-11.1); NUCLEATED RBCS 0 /100WBC; PLATELET COUNT* 314 thou/uL (150-400); POLYS 65.6 %; RDW-CV 13.2 % (10.5-14.5); WBC 7.3 thou/uL (4.0-11.0)
[2018-05-02 14:28] LABS: CALCIUM 9.9 mg/dL (8.5-10.1); CREATININE 1.5 mg/dL (0.6-1.3)
[2018-05-02 14:32] LABS: ALBUMIN 3.3 g/dL (3.4-5.0); TOTAL BILIRUBIN 1.1 mg/dL (<0.1-1.0); TOTAL PROTEIN 8.1 g/dL (6.4-8.2)
[2018-05-02 15:19] LABS: URINE BILIRUBIN NEGATIVE (Negative); URINE BLOOD 1+ (Negative); URINE CLARITY CLEAR; URINE COLOR YELLOW; URINE GLUCOSE-RANDOM NEGATIVE (Negative); URINE KETONES NEGATIVE (Negative); URINE PROTEIN NEGATIVE (Negative); URINE SPECIFIC GRAVITY 1.015 (1.005-1.030); URINE UROBILINOGEN 0.2 E.U./dl (0.2-1.0)
[2018-05-02 15:20] LABS: URINE LEUKOCYTES-REFLEX 3+ (Negative); URINE NITRITE-REFLEX POSITIVE (Negative)
[2018-05-02 15:25] LABS: BACTERIA-REFLEX None Seen /HPF (None Seen); CASTS None Seen /LPF (None Seen); CRYSTALS None Seen /LPF (None Seen); SQUAMOUS NONE SEEN /LPF (0-3); URINE RBC None Seen /HPF (0-2); URINE WBC-REFLEX None Seen /HPF (0-5)
[2018-05-02 17:05] VITALS: BP 184/72
[2018-05-02 18:25] VITALS: BP 186/80
[2018-05-02 20:00] VITALS: BP 165/84
[2018-05-03] VITALS (8 sets, daily range): BP systolic 111–165; BP diastolic 62–96
[2018-05-03 04:14] LABS: ABSOLUTE BASOPHILS 0.1 thou/uL (0.0-0.2); ABSOLUTE MONOCYTES 0.6 thou/uL (0.0-1.2); ABSOLUTE NEUTROPHILS 9.2 thou/uL (1.6-8.1); BASOPHILS 0.5 %; EOSINOPHILS 0.3 %; HEMATOCRIT 32.5 % (37.0-47.0); HEMOGLOBIN 10.8 gm/dL (12.0-15.0); LYMPHOCYTES 16.6 %; MCH 30.4 pg (26.0-34.0); MCHC 33.3 g/dL (28.0-37.0); MCV 91.3 fL (80.0-100.0); MONOCYTES 5.4 %; MPV 8.2 fl. (7.2-11.1); NUCLEATED RBCS 0 /100WBC; PLATELET COUNT* 310 thou/uL (150-400); POLYS 77.2 %; RBC 3.56 mil/uL (4.20-5.00); RDW-CV 13.5 % (10.5-14.5); WBC 11.9 thou/uL (4.0-11.0)
[2018-05-03 04:37] LABS: ALBUMIN 2.8 g/dL (3.4-5.0); CALCIUM 9.3 mg/dL (8.5-10.1); CREATININE 1.4 mg/dL (0.6-1.3); POTASSIUM 4.1 mmol/L (3.5-5.1); TOTAL BILIRUBIN 0.4 mg/dL (<0.1-1.0); TOTAL PROTEIN 6.5 g/dL (6.4-8.2)
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
[2018-05-04 03:55] LABS: ABSOLUTE BASOPHILS 0.2 thou/uL (0.0-0.2); ABSOLUTE EOSINOPHILS 0.7 thou/uL (0.0-0.7); ABSOLUTE LYMPHOCYTES 3.2 thou/uL (0.8-5.3); ABSOLUTE MONOCYTES 0.7 thou/uL (0.0-1.2); ABSOLUTE NEUTROPHILS 8.4 thou/uL (1.6-8.1); BASOPHILS 1.4 %; EOSINOPHILS 5.1 %; HEMATOCRIT 29.9 % (37.0-47.0); HEMOGLOBIN 9.9 gm/dL (12.0-15.0); LYMPHOCYTES 24.4 %; MCH 30.4 pg (26.0-34.0); MCV 91.9 fL (80.0-100.0); MONOCYTES 5.6 %; MPV 8.7 fl. (7.2-11.1); NUCLEATED RBCS 0 /100WBC; PLATELET COUNT* 307 thou/uL (150-400); POLYS 63.5 %; RBC 3.25 mil/uL (4.20-5.00); RDW-CV 13.7 % (10.5-14.5); WBC 13.2 thou/uL (4.0-11.0)
[2018-05-04 04:07] LABS: PREALBUMIN 11.9 mg/dL (18.0-35.7)
[2018-05-04 04:10] LABS: ALBUMIN 2.5 g/dL (3.4-5.0); CALCIUM 8.8 mg/dL (8.5-10.1); CREATININE 1.3 mg/dL (0.6-1.3); POTASSIUM 3.6 mmol/L (3.5-5.1); TOTAL BILIRUBIN 0.4 mg/dL (<0.1-1.0); TOTAL PROTEIN 6.4 g/dL (6.4-8.2)
[2018-05-04 05:07] LABS: ESR (SEDRATE) 53 mm/hr (0-30)
[2018-05-04 08:10] VITALS: BP 164/83
[2018-05-04 09:54] VITALS: BP 164/83
[2018-05-04 16:15] VITALS: BP 135/78
[2018-05-04 19:40] VITALS: BP 167/70
[2018-05-05 04:58] LABS: ABSOLUTE BASOPHILS 0.1 thou/uL (0.0-0.2); ABSOLUTE EOSINOPHILS 0.7 thou/uL (0.0-0.7); ABSOLUTE LYMPHOCYTES 2.4 thou/uL (0.8-5.3); ABSOLUTE MONOCYTES 0.5 thou/uL (0.0-1.2); ABSOLUTE NEUTROPHILS 5.2 thou/uL (1.6-8.1); BASOPHILS 1.2 %; EOSINOPHILS 7.6 %; HEMATOCRIT 26.2 % (37.0-47.0); HEMOGLOBIN 8.8 gm/dL (12.0-15.0); LYMPHOCYTES 27.2 %; MCH 31.2 pg (26.0-34.0); MCHC 33.7 g/dL (28.0-37.0); MCV 92.8 fL (80.0-100.0); MPV 8.5 fl. (7.2-11.1); NUCLEATED RBCS 0 /100WBC; PLATELET COUNT* 240 thou/uL (150-400); RBC 2.83 mil/uL (4.20-5.00); RDW-CV 13.7 % (10.5-14.5); WBC 8.9 thou/uL (4.0-11.0)
[2018-05-05 05:39] LABS: ALBUMIN 2.3 g/dL (3.4-5.0); CALCIUM 8.7 mg/dL (8.5-10.1); CREATININE 1.2 mg/dL (0.6-1.3); POTASSIUM 3.3 mmol/L (3.5-5.1); TOTAL BILIRUBIN 0.5 mg/dL (<0.1-1.0); TOTAL PROTEIN 5.9 g/dL (6.4-8.2)
[2018-05-05 08:00] VITALS: BP 169/70
[2018-05-05 16:00] VITALS: BP 162/82
[2018-05-05 21:35] VITALS: BP 179/72
[2018-05-06 00:23] VITALS: BP 136/51
[2018-05-06 08:00] VITALS: BP 171/69
[2018-05-06 17:09] VITALS: BP 149/67
[2018-05-06 20:00] VITALS: BP 158/65
[2018-05-07 05:07] LABS: ABSOLUTE BASOPHILS 0.1 thou/uL (0.0-0.2); ABSOLUTE EOSINOPHILS 0.6 thou/uL (0.0-0.7); ABSOLUTE LYMPHOCYTES 2.6 thou/uL (0.8-5.3); ABSOLUTE MONOCYTES 0.4 thou/uL (0.0-1.2); ABSOLUTE NEUTROPHILS 3.9 thou/uL (1.6-8.1); BASOPHILS 1.8 %; EOSINOPHILS 7.3 %; HEMATOCRIT 27.3 % (37.0-47.0); HEMOGLOBIN 9.3 gm/dL (12.0-15.0); LYMPHOCYTES 33.9 %; MCH 31.4 pg (26.0-34.0); MCV 92.4 fL (80.0-100.0); MONOCYTES 5.8 %; MPV 8.4 fl. (7.2-11.1); NUCLEATED RBCS 0 /100WBC; PLATELET COUNT* 235 thou/uL (150-400); POLYS 51.2 %; RBC 2.95 mil/uL (4.20-5.00); RDW-CV 13.7 % (10.5-14.5); WBC 7.7 thou/uL (4.0-11.0)
[2018-05-07 05:42] LABS: ALBUMIN 2.4 g/dL (3.4-5.0); CALCIUM 8.7 mg/dL (8.5-10.1); CREATININE 1.2 mg/dL (0.6-1.3); POTASSIUM 3.2 mmol/L (3.5-5.1); TOTAL BILIRUBIN 0.4 mg/dL (<0.1-1.0); TOTAL PROTEIN 5.6 g/dL (6.4-8.2)
[2018-05-07 07:57] VITALS: BP 159/78
[2018-05-07 14:11] VITALS: BP 159/78
[2018-05-07] MEDS ORDERED: TRAMADOL 50 MG50 MG PO (14:43)
[2018-05-07] MEDS ORDERED: ZYVOX600 MG PO (14:57)
== END 2018-05-07 16:05 | DRG 699 ==
LOC: M.ERS 13:20 → M.ORTHSURG 16:26 → M.TBA-ER 16:26 → M.ORTHSURG 17:02 → M.3W 05-03 19:58
PROVIDERS: Nurse Practitioner Family; ADMIT Internal Medicine
PROC: 0DBH8ZX Excision of Cecum, Via Natural or Artificial Opening Endoscopic, Diagnostic (ICD-10-PCS; principal; 2018-05-04)
PROC: 0DBK8ZX Excision of Ascending Colon, Via Natural or Artificial Opening Endoscopic, Diagnostic (ICD-10-PCS; principal; 2018-05-04)
DX: N32.0 Bladder-neck obstruction (principal); N17.9 Acute kidney failure, unspecified; E44.1 Mild protein-calorie malnutrition; Z68.1 Body mass index [BMI] 19.9 or less, adult; F11.20 Opioid dependence, uncomplicated; N13.6 Pyonephrosis; S21.101A Unspecified open wound of right front wall of thorax without penetration into thoracic cavity, initial encounter; G89.4 Chronic pain syndrome; G62.9 Polyneuropathy, unspecified; K21.9 Gastro-esophageal reflux disease without esophagitis; B95.62 Methicillin resistant Staphylococcus aureus infection as the cause of diseases classified elsewhere; N20.0 Calculus of kidney; K56.41 Fecal impaction; B96.20 Unspecified Escherichia coli [E. coli] as the cause of diseases classified elsewhere; I10 Essential (primary) hypertension; D64.9 Anemia, unspecified; E53.8 Deficiency of other specified B group vitamins; Z88.0 Allergy status to penicillin; Z88.8 Allergy status to other drugs, medicaments and biological substances; Z90.710 Acquired absence of both cervix and uterus; Z79.899 Other long term (current) drug therapy; Z87.891 Personal history of nicotine dependence; Z79.2 Long term (current) use of antibiotics; Z84.1 Family history of disorders of kidney and ureter

== ENCOUNTER 2018-05-08 18:50 | Inpatient (IN) | payer MEDICARE, MEDICAID ==
[~2018-05-08] VITALS: Ht 180.3 cm; Wt 62.6 kg
[2018-05-08 18:50] VITALS: BP 166/87
[~2018-05-08 18:50] MED LIST changes: +ASPERCREME76.5 GM TOP; +RIFAMPIN 300 M300 M1 PO; +ZYVOX600 MG PO
[2018-05-08 19:42] LABS: ABSOLUTE EOSINOPHILS 0.2 thou/uL (0.0-0.7); ABSOLUTE LYMPHOCYTES 2.8 thou/uL (0.8-5.3); ABSOLUTE MONOCYTES 0.5 thou/uL (0.0-1.2); ABSOLUTE NEUTROPHILS 6.7 thou/uL (1.6-8.1); BASOPHILS 0.3 %; EOSINOPHILS 2.1 %; HEMATOCRIT 30.7 % (37.0-47.0); HEMOGLOBIN 10.5 gm/dL (12.0-15.0); LYMPHOCYTES 27.4 %; MCH 30.3 pg (26.0-34.0); MONOCYTES 4.8 %; NUCLEATED RBCS 0 /100WBC; POLYS 65.4 %; RBC 3.45 mil/uL (4.20-5.00); RDW-CV 13.2 % (10.5-14.5); WBC 10.2 thou/uL (4.0-11.0)
[2018-05-08 19:43] LABS: PLATELET COUNT* 311 thou/uL (150-400)
[2018-05-08 20:21] LABS: CALCIUM 9.5 mg/dL (8.5-10.1); CREATININE 0.9 mg/dL (0.6-1.3)
[2018-05-08 20:24] LABS: POTASSIUM 2.7 mmol/L (3.5-5.1)
[2018-05-08 20:25] LABS: ALBUMIN 3.2 g/dL (3.4-5.0); TOTAL BILIRUBIN 0.4 mg/dL (<0.1-1.0); TOTAL PROTEIN 6.9 g/dL (6.4-8.2)
[2018-05-08 23:34] VITALS: BP 188/101
[2018-05-09 04:00] VITALS: BP 174/87
[2018-05-09 05:31] LABS: ALBUMIN 2.9 g/dL (3.4-5.0); CALCIUM 9.2 mg/dL (8.5-10.1); CREATININE 0.9 mg/dL (0.6-1.3); TOTAL BILIRUBIN 0.3 mg/dL (<0.1-1.0); TOTAL PROTEIN 6.5 g/dL (6.4-8.2)
[2018-05-09 09:15] VITALS: BP 166/84
[2018-05-09 09:44] LABS: URINE BILIRUBIN NEGATIVE (Negative); URINE BLOOD 3+ (Negative); URINE CLARITY CLEAR; URINE COLOR YELLOW; URINE GLUCOSE-RANDOM NEGATIVE (Negative); URINE KETONES TRACE (Negative); URINE LEUKOCYTES-REFLEX TRACE (Negative); URINE NITRITE-REFLEX NEGATIVE (Negative); URINE PROTEIN 2+ (Negative); URINE UROBILINOGEN 0.2 E.U./dl (0.2-1.0)
[2018-05-09 09:56] LABS: SQUAMOUS >10 Many /LPF (0-3)
[2018-05-09 09:58] LABS: URINE RBC >20 Many /HPF (0-2); URINE WBC-REFLEX 6-15 Few /HPF (0-5)
[2018-05-09 10:00] LABS: CASTS None Seen /LPF (None Seen); CRYSTALS None Seen /LPF (None Seen); MUCUS None Seen strn/LPF (None Seen)
[2018-05-09 12:00] VITALS: BP 104/60
[2018-05-09 16:00] VITALS: BP 117/68
[2018-05-09 20:20] VITALS: BP 149/72
[2018-05-09 21:24] LABS: MAGNESIUM 2.9 mg/dL (1.8-2.4); POTASSIUM 4.8 mmol/L (3.5-5.1)
[2018-05-10] VITALS: BP 109/56
[2018-05-10 04:00] VITALS: BP 114/70
[2018-05-10 08:00] VITALS: BP 124/70
[2018-05-10 11:30] VITALS: BP 92/54
[2018-05-10 16:00] VITALS: BP 116/79
[2018-05-10 20:00] VITALS: BP 122/62
[2018-05-11] VITALS: BP 112/56
[2018-05-11 04:00] VITALS: BP 114/64
[2018-05-11 08:00] VITALS: BP 142/66
[2018-05-11 09:41] LABS: HEMATOCRIT 30.7 % (37.0-47.0); HEMOGLOBIN 10.2 gm/dL (12.0-15.0); MCH 30.6 pg (26.0-34.0); MCHC 33.1 g/dL (28.0-37.0); MCV 92.3 fL (80.0-100.0); MPV 9.2 fl. (7.2-11.1); RBC 3.32 mil/uL (4.20-5.00); RDW-CV 14.2 % (10.5-14.5); WBC 7.5 thou/uL (4.0-11.0)
[2018-05-11 09:53] LABS: CREATININE 1.3 mg/dL (0.6-1.3); MAGNESIUM 1.8 mg/dL (1.8-2.4); POTASSIUM 3.7 mmol/L (3.5-5.1)
[2018-05-11 11:56] VITALS: BP 126/55
[2018-05-11 15:41] VITALS: BP 116/73
[2018-05-11 20:00] VITALS: BP 143/66
[2018-05-12] VITALS: BP 108/53
[2018-05-12 04:00] VITALS: BP 115/57
[2018-05-12 07:45] VITALS: BP 141/72
[2018-05-12 12:12] VITALS: BP 109/52
[2018-05-12 16:35] VITALS: BP 108/53
[2018-05-12 20:00] VITALS: BP 101/55
[2018-05-13] VITALS: BP 125/70
[2018-05-13 04:30] VITALS: BP 139/53
[2018-05-13 08:02] VITALS: BP 154/72
[2018-05-13 12:50] VITALS: BP 127/69
[2018-05-13 16:22] VITALS: BP 118/45
[2018-05-13 20:00] VITALS: BP 151/81
[2018-05-14] VITALS (9 sets, daily range): BP systolic 116–165; BP diastolic 62–85
[2018-05-14 05:21] LABS: CALCIUM 8.9 mg/dL (8.5-10.1); CREATININE 1.2 mg/dL (0.6-1.3); MAGNESIUM 1.6 mg/dL (1.8-2.4); POTASSIUM 4.3 mmol/L (3.5-5.1)
[2018-05-14 12:08] LABS: URINE BILIRUBIN NEGATIVE (Negative); URINE BLOOD NEGATIVE (Negative); URINE CLARITY CLEAR; URINE COLOR YELLOW; URINE GLUCOSE-RANDOM NEGATIVE (Negative); URINE KETONES NEGATIVE (Negative); URINE LEUKOCYTES-REFLEX 1+ (Negative); URINE NITRITE-REFLEX NEGATIVE (Negative); URINE PROTEIN NEGATIVE (Negative); URINE SPECIFIC GRAVITY 1.015 (1.005-1.030); URINE UROBILINOGEN 0.2 E.U./dl (0.2-1.0)
[2018-05-14] MEDS ORDERED: FLOMAX0.4 MG PO (12:11)
[2018-05-14] MEDS ORDERED: IBUPROFEN 400400 M2 PO (12:12)
[2018-05-14 12:24] LABS: SQUAMOUS 4-10 Moderate /LPF (0-3); URINE WBC-REFLEX 6-15 Few /HPF (0-5)
[2018-05-14 12:25] LABS: BACTERIA-REFLEX 1-9 Few /HPF (None Seen); CASTS None Seen /LPF (None Seen); CRYSTALS None Seen /LPF (None Seen); MUCUS 4-6 Moderate strn/LPF (None Seen); RENAL EPITHELIAL CELLS 0-3 Few /LPF (None Seen); URINE RBC 0-2 Rare /HPF (0-2)
[2018-05-15 04:24] VITALS: BP 113/46
[2018-05-15 07:45] VITALS: BP 130/73
[2018-05-15 12:00] VITALS: BP 95/54
== END 2018-05-15 12:45 | DRG 699 ==
LOC: M.ERS 18:50 → M.2W 21:59 → M.TBA-ER 21:59 → M.2W 23:53
PROVIDERS: Emergency Medicine; Internal Medicine; Physician Assistant; Specialist; ADMIT Internal Medicine
DX: N32.0 Bladder-neck obstruction (principal); E44.0 Moderate protein-calorie malnutrition; E80.21 Acute intermittent (hepatic) porphyria; F11.20 Opioid dependence, uncomplicated; Z68.1 Body mass index [BMI] 19.9 or less, adult; G89.29 Other chronic pain; D64.9 Anemia, unspecified; R33.9 Retention of urine, unspecified; E53.8 Deficiency of other specified B group vitamins; N30.90 Cystitis, unspecified without hematuria; B96.20 Unspecified Escherichia coli [E. coli] as the cause of diseases classified elsewhere; Z16.12 Extended spectrum beta lactamase (ESBL) resistance; I10 Essential (primary) hypertension; K59.09 Other constipation; F17.210 Nicotine dependence, cigarettes, uncomplicated; E83.42 Hypomagnesemia; E87.6 Hypokalemia; Z88.0 Allergy status to penicillin; Z79.899 Other long term (current) drug therapy; Z90.710 Acquired absence of both cervix and uterus; Z88.8 Allergy status to other drugs, medicaments and biological substances

== ENCOUNTER → 2018-05-28 | Outpatient (CLI) | payer MEDICARE, MEDICAID ==
[~2018-05-28] MED LIST changes: +FLOMAX0.4 MG PO; +IBUPROFEN 400400 M2 PO
== END ==
LOC: M.WC 02:08
DX: T22.30XD Burn of third degree of shoulder and upper limb, except wrist and hand, unspecified site, subsequent encounter (principal); T21.31XD Burn of third degree of chest wall, subsequent encounter; T22.341D Burn of third degree of right axilla, subsequent encounter; T31.0 Burns involving less than 10% of body surface; G47.33 Obstructive sleep apnea (adult) (pediatric); I10 Essential (primary) hypertension; J42 Unspecified chronic bronchitis; K21.9 Gastro-esophageal reflux disease without esophagitis; F31.0 Bipolar disorder, current episode hypomanic; F17.200 Nicotine dependence, unspecified, uncomplicated; Z90.710 Acquired absence of both cervix and uterus; X08.8XXD Exposure to other specified smoke, fire and flames, subsequent encounter

== ENCOUNTER → 2018-06-11 | Outpatient (CLI) | payer MEDICARE, MEDICAID | LOC: M.WC 09:28 | DX: T22.30XD Burn of third degree of shoulder and upper limb, except wrist and hand, unspecified site, subsequent encounter (principal); T21.31XD Burn of third degree of chest wall, subsequent encounter; T22.341D Burn of third degree of right axilla, subsequent encounter; T31.0 Burns involving less than 10% of body surface; G47.33 Obstructive sleep apnea (adult) (pediatric); G47.30 Sleep apnea, unspecified; I10 Essential (primary) hypertension; J42 Unspecified chronic bronchitis; K21.9 Gastro-esophageal reflux disease without esophagitis; F31.0 Bipolar disorder, current episode hypomanic; F17.200 Nicotine dependence, unspecified, uncomplicated; F32.9 Major depressive disorder, single episode, unspecified; Z90.710 Acquired absence of both cervix and uterus; X08.8XXD Exposure to other specified smoke, fire and flames, subsequent encounter ==

== ENCOUNTER → 2018-06-28 | Outpatient (CLI) | payer MEDICARE, MEDICAID | LOC: M.WC 06-25 10:00 | DX: T22.30XD Burn of third degree of shoulder and upper limb, except wrist and hand, unspecified site, subsequent encounter (principal); T21.31XD Burn of third degree of chest wall, subsequent encounter; T22.341D Burn of third degree of right axilla, subsequent encounter; T31.0 Burns involving less than 10% of body surface; G47.33 Obstructive sleep apnea (adult) (pediatric); I10 Essential (primary) hypertension; J42 Unspecified chronic bronchitis; K21.9 Gastro-esophageal reflux disease without esophagitis; F31.0 Bipolar disorder, current episode hypomanic; F17.200 Nicotine dependence, unspecified, uncomplicated; F41.9 Anxiety disorder, unspecified; Z90.710 Acquired absence of both cervix and uterus; X08.8XXD Exposure to other specified smoke, fire and flames, subsequent encounter ==

== ENCOUNTER → 2018-07-12 | Outpatient (CLI) | payer MEDICARE, MEDICAID | LOC: M.WC 05:29 | DX: T22.30XD Burn of third degree of shoulder and upper limb, except wrist and hand, unspecified site, subsequent encounter (principal); T21.31XD Burn of third degree of chest wall, subsequent encounter; T22.341D Burn of third degree of right axilla, subsequent encounter; T31.0 Burns involving less than 10% of body surface; S51.812A Laceration without foreign body of left forearm, initial encounter; G47.33 Obstructive sleep apnea (adult) (pediatric); I10 Essential (primary) hypertension; J42 Unspecified chronic bronchitis; K21.9 Gastro-esophageal reflux disease without esophagitis; F31.0 Bipolar disorder, current episode hypomanic; F41.9 Anxiety disorder, unspecified; Z90.710 Acquired absence of both cervix and uterus; X58.XXXA Exposure to other specified factors, initial encounter; X08.8XXD Exposure to other specified smoke, fire and flames, subsequent encounter; Y93.89 Activity, other specified; Y92.89 Other specified places as the place of occurrence of the external cause; Y99.8 Other external cause status ==

== ENCOUNTER → 2018-07-27 | Outpatient (CLI) | payer MEDICARE, MEDICAID | LOC: M.WC 03:35 | DX: T22.30XD Burn of third degree of shoulder and upper limb, except wrist and hand, unspecified site, subsequent encounter (principal); T21.31XD Burn of third degree of chest wall, subsequent encounter; T22.341D Burn of third degree of right axilla, subsequent encounter; T31.0 Burns involving less than 10% of body surface; L84 Corns and callosities; G47.33 Obstructive sleep apnea (adult) (pediatric); I10 Essential (primary) hypertension; J42 Unspecified chronic bronchitis; K21.9 Gastro-esophageal reflux disease without esophagitis; F31.0 Bipolar disorder, current episode hypomanic; F41.9 Anxiety disorder, unspecified; F17.200 Nicotine dependence, unspecified, uncomplicated; Z90.710 Acquired absence of both cervix and uterus; X08.8XXD Exposure to other specified smoke, fire and flames, subsequent encounter ==

== ENCOUNTER → 2018-08-10 | Outpatient (CLI) | payer MEDICARE, MEDICAID | LOC: M.WC 02:03 | DX: T22.30XD Burn of third degree of shoulder and upper limb, except wrist and hand, unspecified site, subsequent encounter (principal); T21.31XD Burn of third degree of chest wall, subsequent encounter; T31.0 Burns involving less than 10% of body surface; I10 Essential (primary) hypertension; G47.33 Obstructive sleep apnea (adult) (pediatric); J42 Unspecified chronic bronchitis; K21.9 Gastro-esophageal reflux disease without esophagitis; L84 Corns and callosities; F31.0 Bipolar disorder, current episode hypomanic; F17.200 Nicotine dependence, unspecified, uncomplicated; F41.9 Anxiety disorder, unspecified; Z90.710 Acquired absence of both cervix and uterus; X08.8XXD Exposure to other specified smoke, fire and flames, subsequent encounter ==

== ENCOUNTER → 2018-08-23 | Outpatient (CLI) | payer MEDICARE, MEDICAID | LOC: M.WC 00:38 | DX: T22.30XD Burn of third degree of shoulder and upper limb, except wrist and hand, unspecified site, subsequent encounter (principal); T21.31XD Burn of third degree of chest wall, subsequent encounter; T31.0 Burns involving less than 10% of body surface; I10 Essential (primary) hypertension; J42 Unspecified chronic bronchitis; K21.9 Gastro-esophageal reflux disease without esophagitis; G47.33 Obstructive sleep apnea (adult) (pediatric); F31.0 Bipolar disorder, current episode hypomanic; F41.9 Anxiety disorder, unspecified; F17.200 Nicotine dependence, unspecified, uncomplicated; Z90.710 Acquired absence of both cervix and uterus; X08.8XXD Exposure to other specified smoke, fire and flames, subsequent encounter ==

== ENCOUNTER 2018-09-02 03:32 | Inpatient (IN) | payer MEDICARE, MEDICAID ==
[~2018-09-02] VITALS: Ht 175.3 cm; Wt 59.9 kg
[2018-09-02 03:33] VITALS: BP 133/73
[2018-09-02] MEDS ORDERED: CIPRO500 MG PO (03:44)
[2018-09-02 04:26] LABS: HEMATOCRIT 40.1 % (37.0-47.0); HEMOGLOBIN 13.5 gm/dL (12.0-15.0); MCH 30.5 pg (26.0-34.0); MCHC 33.6 g/dL (28.0-37.0); MCV 90.7 fL (80.0-100.0); NUCLEATED RBCS 0 /100WBC; PLATELET COUNT* 276 thou/uL (150-400); RBC 4.42 mil/uL (4.20-5.00); RDW-CV 13.2 % (10.5-14.5); WBC 7.1 thou/uL (4.0-11.0)
[2018-09-02 04:44] LABS: ALBUMIN 3.6 g/dL (3.4-5.0); ALKALINE PHOSPHATASE 91 U/L (46-116); ANION GAP 10 mmol/L (7-16); BUN 30 mg/dL (7-18); CALCIUM 10.4 mg/dL (8.5-10.1); CHLORIDE 102 mmol/L (98-107); CO2 29 mmol/L (21-32); CREATININE 1.6 mg/dL (0.6-1.3); GLUCOSE 104 mg/dL (70-99); NT-PRO BRAIN NAT PEPTIDE 164 pg/mL (<300); POTASSIUM 4.1 mmol/L (3.5-5.1); SGOT 18 U/L (15-37); SGPT 15 U/L (30-65); SODIUM 141 mmol/L (136-145); TOTAL BILIRUBIN 0.3 mg/dL (<0.1-1.0); TOTAL PROTEIN 8.4 g/dL (6.4-8.2); TROPONIN-I LEVEL <0.06 ng/mL (<0.06)
[2018-09-02 06:35] LABS: ABSOLUTE BASOPHILS 0.1 thou/uL (0.0-0.2); ABSOLUTE EOSINOPHILS 0.8 thou/uL (0.0-0.7); ABSOLUTE LYMPHOCYTES 2.8 thou/uL (0.8-5.3); ABSOLUTE MONOCYTES 0.2 thou/uL (0.0-1.2); ABSOLUTE NEUTROPHILS 3.3 thou/uL (1.6-8.1)
[2018-09-02 06:36] LABS: PLATELET ESTIMATE ADEQUATE
[2018-09-02 06:41] VITALS: BP 104/59
[2018-09-02 11:47] VITALS: BP 116/62
--- NOTE | 2018-09-02 13:54 | EKG ---
[place] [address] ELECTROCARDIOGRAM REPORT Name: ROMULO WHITMAN Room: [address] ADM IN M.R.#: [id number] Admission: 09/02/18 Attend Phys: Quang Street, Discharge: Date of : 48 Report #: [id number] THIS REPORT FOR: //name// [facility] ED Test Date: 2018-09-02 Test Time: 03:52:15 Pat Name: ROMULO WHITMAN Department: Room: [facility] Gender: F Hvac Technician: MR : 1950 Requested By: Cece Doss Order Number: [id number] MD: Darren Mcgrath Measurements Intervals [place] Rate: 76 P: AK: QRS: 52 QRSD: 134 T: 46 QT: 426 QTc: 480 Interpretive Statements sinus rhythm Right bundle branch block Compared to ECG 11/14/2017 13:14:43 no change Electronically Signed On 09-02-2018 13:53:43 CDT by Darren Mcgrath [email or web address] <ELECTRONICALLY SIGNED> By: Darren Mcgrath MD, [facility] 09/02/18 1353 0352 0352 Darren Mcgrath MD, [facility] /EPI
[2018-09-02 15:23] VITALS: BP 131/66
[2018-09-02 19:15] VITALS: BP 95/57
[2018-09-03 00:02] VITALS: BP 143/77
[2018-09-03 04:15] VITALS: BP 129/72
[2018-09-03 08:11] VITALS: BP 133/62
[2018-09-03 12:32] VITALS: BP 111/63
[2018-09-03 17:01] VITALS: BP 128/76
[2018-09-03 19:15] VITALS: BP 131/61
[2018-09-04] VITALS: BP 132/71
[2018-09-04 08:00] VITALS: BP 132/71
[2018-09-04] MEDS ORDERED: LEVAQUIN 500 M500 M2 PO (11:14)
[2018-09-04] MEDS ORDERED: PREDNISONE 10 M10 MG PO (11:14)
[2018-09-04] MEDS ORDERED: IPRAT-ALBUT 0.5-3 ML INH (11:14)
[2018-09-04 11:39] VITALS: BP 132/71
[2018-09-04 15:52] VITALS: BP 130/68
== END 2018-09-04 17:50 | disposition home health service (06) | DRG 682 ==
LOC: M.ERS 03:32 → M.2W 05:34 → M.TBA-ER 05:34 → M.2W 06:13 → M.3W 09-03 19:16
PROVIDERS: Emergency Medicine; ADMIT Family Medicine
DX: N17.0 Acute kidney failure with tubular necrosis (principal); J96.01 Acute respiratory failure with hypoxia; J15.9 Unspecified bacterial pneumonia; E80.21 Acute intermittent (hepatic) porphyria; F17.210 Nicotine dependence, cigarettes, uncomplicated; I12.9 Hypertensive chronic kidney disease with stage 1 through stage 4 chronic kidney disease, or unspecified chronic kidney disease; N18.3 Chronic kidney disease, stage 3 (moderate); K59.09 Other constipation; Z90.710 Acquired absence of both cervix and uterus; Z88.0 Allergy status to penicillin; Z88.8 Allergy status to other drugs, medicaments and biological substances; Z84.1 Family history of disorders of kidney and ureter; Z79.899 Other long term (current) drug therapy

== ENCOUNTER → 2018-09-07 | Outpatient (CLI) | payer MEDICARE, MEDICAID ==
[~2018-09-07] MED LIST changes: +IPRAT-ALBUT 0.5-3 ML INH; +LEVAQUIN 500 M500 M2 PO; +PREDNISONE 10 M10 MG PO
== END ==
LOC: M.WC 05:41
DX: T22.30XD Burn of third degree of shoulder and upper limb, except wrist and hand, unspecified site, subsequent encounter (principal); T21.31XD Burn of third degree of chest wall, subsequent encounter; T31.0 Burns involving less than 10% of body surface; G47.33 Obstructive sleep apnea (adult) (pediatric); I10 Essential (primary) hypertension; J42 Unspecified chronic bronchitis; K21.9 Gastro-esophageal reflux disease without esophagitis; F31.0 Bipolar disorder, current episode hypomanic; F41.9 Anxiety disorder, unspecified; F17.200 Nicotine dependence, unspecified, uncomplicated; Z90.710 Acquired absence of both cervix and uterus; X08.8XXD Exposure to other specified smoke, fire and flames, subsequent encounter

== ENCOUNTER → 2018-09-21 | Outpatient (CLI) | payer MEDICARE, MEDICAID | LOC: M.WC 04:59 | DX: T22.30XD Burn of third degree of shoulder and upper limb, except wrist and hand, unspecified site, subsequent encounter (principal); T21.31XD Burn of third degree of chest wall, subsequent encounter; T31.0 Burns involving less than 10% of body surface; G47.33 Obstructive sleep apnea (adult) (pediatric); I10 Essential (primary) hypertension; J42 Unspecified chronic bronchitis; K21.9 Gastro-esophageal reflux disease without esophagitis; F17.200 Nicotine dependence, unspecified, uncomplicated; F41.9 Anxiety disorder, unspecified; F31.0 Bipolar disorder, current episode hypomanic; Z90.710 Acquired absence of both cervix and uterus; T79.8XXD Other early complications of trauma, subsequent encounter ==

== ENCOUNTER 2019-02-07 14:59 | Inpatient (IN) | payer MEDICARE, MEDICAID ==
[~2019-02-07] VITALS: Ht 177.8 cm; Wt 66.2 kg
[~2019-02-07 14:59] MED LIST changes: +CEFDINIR300 MG PO
[2019-02-07 15:03] VITALS: BP 209/101
[2019-02-07] MEDS ORDERED: FLOMAX0.4 MG PO ×2 (15:08)
[2019-02-07 15:22] LABS: URINE BILIRUBIN NEGATIVE (Negative); URINE BLOOD NEGATIVE (Negative); URINE CLARITY CLEAR; URINE COLOR YELLOW; URINE GLUCOSE-RANDOM NEGATIVE (Negative); URINE KETONES NEGATIVE (Negative); URINE LEUKOCYTES-REFLEX NEGATIVE (Negative); URINE NITRITE-REFLEX NEGATIVE (Negative); URINE PROTEIN NEGATIVE (Negative); URINE SPECIFIC GRAVITY <= 1.005 (1.005-1.030); URINE UROBILINOGEN 0.2 E.U./dl (0.2-1.0)
[2019-02-07 15:37] LABS: ABSOLUTE BASOPHILS 0.1 thou/uL (0.0-0.2); ABSOLUTE EOSINOPHILS 0.1 thou/uL (0.0-0.7); ABSOLUTE LYMPHOCYTES 2.4 thou/uL (0.8-5.3); ABSOLUTE MONOCYTES 0.2 thou/uL (0.0-1.2); ABSOLUTE NEUTROPHILS 3.6 thou/uL (1.6-8.1); EOSINOPHILS 0.9 %; HEMOGLOBIN 15.4 gm/dL (12.0-15.0); LYMPHOCYTES 37.3 %; MCH 30.9 pg (26.0-34.0); MCV 88.4 fL (80.0-100.0); MONOCYTES 3.6 %; NUCLEATED RBCS 0 /100WBC; PLATELET COUNT* 192 thou/uL (150-400); POLYS 57.2 %; RBC 4.98 mil/uL (4.20-5.00); RDW-CV 13.9 % (10.5-14.5); WBC 6.3 thou/uL (4.0-11.0)
[2019-02-07 15:45] LABS: ANION GAP 12 mmol/L (7-16); BUN 17 mg/dL (7-18); CALCIUM 9.8 mg/dL (8.5-10.1); CHLORIDE 86 mmol/L (98-107); CO2 26 mmol/L (21-32); CREATININE 1.6 mg/dL (0.6-1.3); GLUCOSE 97 mg/dL (70-99); POTASSIUM 4.5 mmol/L (3.5-5.1); SODIUM 124 mmol/L (136-145)
[2019-02-07 15:57] LABS: ALBUMIN 4.4 g/dL (3.4-5.0); ALKALINE PHOSPHATASE 82 U/L (46-116); LIPASE 113 U/L (73-393); SGOT 15 U/L (15-37); SGPT 16 U/L (30-65); TOTAL BILIRUBIN 0.6 mg/dL (<0.1-1.0); TOTAL PROTEIN 8.3 g/dL (6.4-8.2); TROPONIN-I LEVEL <0.06 ng/mL (<0.06)
--- NOTE | 2019-02-07 17:21 | NUR ---
STEPH NOTIFIED UPON PT RETURN FROM CT. STEPH TAKING VITALS
[2019-02-07 18:33] VITALS: BP 173/95
[2019-02-07 20:00] VITALS: BP 167/48
[2019-02-07] MEDS ORDERED: CATAPRES0.1 MG PO (20:28)
[2019-02-08] VITALS: BP 156/59
[2019-02-08 04:00] VITALS: BP 130/58
--- NOTE | 2019-02-08 05:35 | NUR ---
ASSUMED CARE OF PT AFTER REPORT AT 1930. PT A&OX4. VSS. ADMISSION HISTORY & PHYSICAL ASSESSMENT COMPLETED AND CHARTED. PT ON RA. ORIENTED TO ROOM & CALL LIGHT. PT TRACING SB/1ST DEG/BBB ON TELE. PT UPSTANDBY TO RESTROOM. PT COMPLAINED OF BACK & ABDOMINAL PAIN- MEDS GIVEN PER JUL. ISOLATION PRECAUTION FOR HISTORY OF MRSA. PT ABLE TO SLEEP WELL ON BED. CALL LIGHT WITHIN REACH.
[2019-02-08 06:05] LABS: URINE BILIRUBIN NEGATIVE (Negative); URINE BLOOD NEGATIVE (Negative); URINE CLARITY CLEAR; URINE COLOR YELLOW; URINE GLUCOSE-RANDOM NEGATIVE (Negative); URINE KETONES NEGATIVE (Negative); URINE LEUKOCYTES-REFLEX NEGATIVE (Negative); URINE NITRITE-REFLEX NEGATIVE (Negative); URINE PROTEIN NEGATIVE (Negative); URINE SPECIFIC GRAVITY <= 1.005 (1.005-1.030); URINE UROBILINOGEN 0.2 E.U./dl (0.2-1.0)
[2019-02-08 07:30] VITALS: BP 138/53
--- NOTE | 2019-02-08 12:28 | EKG ---
[place] [address] ELECTROCARDIOGRAM REPORT Name: ROMULO WHITMAN Room: [address] ADM IN M.R.#: [id number] Admission: 02/07/19 Attend Phys: Marcela Nugent Discharge: Date of : 46 Report #: [id number] THIS REPORT FOR: //name// [facility] ED Test Date: 2019-02-07 Test Time: 15:14:52 Pat Name: ROMULO WHITMAN Department: Room: [facility] Gender: F Staker Surveying: EV : 1950 Requested By: Sailaja Joshi Order Number: [id number] MD: Stone Nuñez Measurements Intervals [place] Rate: 67 P: 47 AK: 188 QRS: 25 QRSD: 145 T: -3 QT: 444 QTc: 469 Interpretive Statements Sinus rhythm Right bundle branch block Anteroseptal infarct, age indeterminate possible Compared to ECG 09/02/2018 03:52:15 no significant change Electronically Signed On 02-08-2019 12:27:52 CDT by Stone Nuñez [email or web address] <ELECTRONICALLY SIGNED> By: Stone Nuñez MD, FACC 02/08/19 1227 1514 1514 Stone Nuñez MD, [facility] /EPI
[2019-02-08 13:05] VITALS: BP 128/47
[2019-02-08 13:33] LABS: CREATININE 1.3 mg/dL (0.6-1.3); POTASSIUM 4.4 mmol/L (3.5-5.1)
--- NOTE | 2019-02-08 15:16 | NUR ---
Pt is A&O. Resides at home with her son. Independent. Son drives. Pt uses a walker at home for mobility. Pt has a home neb. Hx of [facility]. H[facility] of skilled at [facility] and [facility]. Goal is home at ms. No needs anticipated. Following.
--- NOTE | 2019-02-08 16:34 | 2DMMODE ---
[place] [address] 2 D/M-MODE ECHOCARDIOGRAM Name: ROMULO WHITMAN Room: [address] [facility]#: [id number] Admission: 02/07/19 Attend Phys: Buzz Adam Discharge: Date of : 46 Date of Service: 02/08/19 1634 Report #: [id number] THIS REPORT FOR: //name// APPROVED REPORT Study performed: 02/08/2019 15:31:58 EXAM: Comprehensive 2D, Doppler, and color-flow Echocardiogram Patient Location: In-Patient Room #: 208 Status: routine BSA: 1.75 HR: 60 bpm BP: 128/47 mmHg Rhythm: NSR Other Information Study Quality: Good Indications weakness 2D Dimensions IVSd: 10.83 (7-11mm) LVOT Diam: 20.94 (18-24mm) LVDd: 49.98 mm PWd: 11.86 (7-11mm) Ascending Ao: 29.36 (22-36mm) LVDs: 36.88 (25-40mm) Aortic Root: 31.33 mm Volumes Left Atrial Volume (Systole) LA ESV Index: 29.70 mL/m2 Aortic Valve AoV Peak Niaf.: 1.49 m/s AO Peak Gr.: 8.82 mmHg LVOT Max P.12 mmHg AO Mean Gr.: 4.85 mmHg LVOT Mean P.41 mmHg LVOT Max V: 1.43 m/s AO V2 VTI: 30.03 cm LVOT Mean V: 0.83 m/s FELIX (VTI): 3.52 cm2 LVOT V1 VTI: 30.75 cm Mitral Valve E/A Ratio: 1.11 MV Decel. Time: 273.50 ms MV E Max Naif.: 0.66 m/[place] [address] 2 D/M-MODE ECHOCARDIOGRAM Name: WHITMANROMULO Room: [address] .R.#: [id number] Admission: 02/07/19 Attend Phys: Buzz Adam Discharge: Date of : 46 Date of Service: 02/08/19 1634 Report #: [id number] MV PHT: 79.31 ms MVA (PHT): 2.77 cm2 TDI E/Lateral E': 6.60 E/Medial E': 7.33 Medial E' Naif.: 0.09 m/s Lateral E' Naif.: 0.10 m/s Pulmonary Valve PV Peak Naif.: 0.90 m/s PV Peak Gr.: 3.21 mmHg Left Ventricle The left ventricle is normal size. There is normal LV segmental wall motion. Mild concentric left ventricular hypertrophy. Left ventricular systolic function is normal. The left ventricular ejection fraction is within the normal range. LVEF is 60-65%. The left ventricular diastolic function is normal. Right Ventricle The right ventricle is normal size. The right ventricular systolic function is normal. Atria The left atrium size is normal. The right atrium size is normal. Aortic Valve The aortic valve is normal in structure. No aortic regurgitation is present. There is no aortic valvular stenosis. Mitral Valve The mitral valve is normal in structure. Trace mitral regurgitation. No evidence of mitral valve stenosis. Tricuspid Valve The tricuspid valve is normal in structure. Unable to assess PA pressure. There is no tricuspid valve regurgitation noted. Pulmonic Valve The pulmonary valve is normal in structure. There is no pulmonic valvular regurgitation. Great Vessels The aortic root is normal in size. IVC is normal in size and collapses >50% [place] [address] 2 D/M-MODE ECHOCARDIOGRAM Name: ROMULO WHITMAN BRANDON Room: [address] [facility]#: [id number] Admission: 02/07/19 Attend Phys: Buzz Adam Discharge: Date of : 46 Date of Service: 02/08/19 1634 Report #: [id number] Pericardium There is no pericardial effusion. <Conclusion> The left ventricle is normal size. Mild concentric left ventricular hypertrophy. Left ventricular systolic function is normal. The left ventricular ejection fraction is within the normal range. LVEF is 60-65%. The left ventricular diastolic function is normal. The right ventricle is normal size. The left atrium size is normal. The aortic valve is normal in structure. The mitral valve is normal in structure. Trace mitral regurgitation. The tricuspid valve is normal in structure. IVC is normal in size and collapses >50% with inspiration. There is no pericardial effusion. There is normal LV segmental wall motion. <ELECTRONICALLY SIGNED> By: Stone Nuñez MD, FACC 02/08/19 1634 1634 1634 Stone Nuñez MD, FACC /INF
[2019-02-08 16:46] VITALS: BP 136/60
[2019-02-08 19:40] VITALS: BP 143/57
[2019-02-09] VITALS: BP 143/69
[2019-02-09 04:00] VITALS: BP 147/58
--- NOTE | 2019-02-09 05:09 | NUR ---
PT CARE ASSUMED AT 1930. SAT MAINTAINED IN RA. ALERT AND ORIENTED X4. CALL LIGHT WITHIN REACH AND BED IN LOW POSITION. C/O PAIN, MEDICATION GIVEN PER EMAR. HOURLY ROUNDING DONE FOR PT SAFETY.
[2019-02-09 07:30] VITALS: BP 141/69
[2019-02-09 11:30] VITALS: BP 151/60
[2019-02-09 12:30] VITALS: BP 151/60
[2019-02-09] MEDS ORDERED: PRENATAL PO (12:30)
--- NOTE | 2019-02-09 13:47 | NUR ---
RECEIVED DISCHARGE ORDERS PER DR LEZAMA. EDUCATED PT ON F/U APPOINTMENT WITH HER PRIMARY DR AND HOME MEDICATIONS TO CONTINUE. NEW OTC MED FOR A VITAMIN PRESCRIBED AND INSTRUCTED PATIENT TO CONTINUE TAKING AFTER DISCHARGE. IV DISCONTINUED. PRINT PRODUCTION COORDINATOR REMOVED AND RETURNED TO NURSE'S DESK. ALL BELONGINGS PACKED AND LEAVING WITH THE PATIENT. SHE IS LEAVING VIA WHEELCHAIR ACCOMPANIED BY NURSING STAFF AND THE PATIENTS SON FOR TRANSPORTATION. NO QUESTIONS/CONCERNS AT TIME OF DISCHARGE.
== END 2019-02-09 13:35 | disposition home or self-care (01) | DRG 644 ==
LOC: M.ERS 14:59 → M.TBA-ER 16:32 → M.2W 16:32
PROVIDERS: Physician Assistant; ADMIT Internal Medicine
DX: E22.2 Syndrome of inappropriate secretion of antidiuretic hormone (principal); E80.21 Acute intermittent (hepatic) porphyria; N17.9 Acute kidney failure, unspecified; I10 Essential (primary) hypertension; I16.0 Hypertensive urgency; F17.210 Nicotine dependence, cigarettes, uncomplicated; Z90.710 Acquired absence of both cervix and uterus; Z86.14 Personal history of Methicillin resistant Staphylococcus aureus infection; Z79.899 Other long term (current) drug therapy; Z88.0 Allergy status to penicillin; Z88.8 Allergy status to other drugs, medicaments and biological substances

== ENCOUNTER 2019-04-25 22:32 | Emergency (ER) | payer MEDICARE, OTHER, MEDICAID ==
[~2019-04-25] VITALS: Ht 177.8 cm; Wt 62.1 kg
[~2019-04-25 22:32] MED LIST changes: +CATAPRES0.1 MG PO; +PRENATAL PO
[2019-04-25] MEDS ORDERED: XANAX1 MG PO (22:42)
[2019-04-25 23:39] LABS: ABSOLUTE EOSINOPHILS 0.1 thou/uL (0.0-0.7); ABSOLUTE LYMPHOCYTES 2.4 thou/uL (0.8-5.3); ABSOLUTE MONOCYTES 0.3 thou/uL (0.0-1.2); BASOPHILS 0.6 %; EOSINOPHILS 1.3 %; HEMATOCRIT 39.3 % (37.0-47.0); HEMOGLOBIN 13.5 gm/dL (12.0-15.0); LYMPHOCYTES 30.5 %; MCH 30.7 pg (26.0-34.0); MCHC 34.4 g/dL (28.0-37.0); MCV 89.3 fL (80.0-100.0); MONOCYTES 3.3 %; MPV 8.8 fl. (7.2-11.1); NUCLEATED RBCS 0 /100WBC; PLATELET COUNT* 209 thou/uL (150-400); POLYS 64.3 %; RDW-CV 14.8 % (10.5-14.5); WBC 7.8 thou/uL (4.0-11.0)
[2019-04-25 23:49] LABS: CALCIUM 9.1 mg/dL (8.5-10.1); CREATININE 1.7 mg/dL (0.6-1.3); POTASSIUM 4.1 mmol/L (3.5-5.1)
[2019-04-25 23:53] LABS: PROTIME 10.3 Seconds (9.20-11.50)
[2019-04-26] LABS: ALBUMIN 3.9 g/dL (3.4-5.0); TOTAL BILIRUBIN 0.3 mg/dL (<0.1-1.0); TOTAL PROTEIN 7.5 g/dL (6.4-8.2)
[2019-04-26 00:20] LABS: URINE BILIRUBIN NEGATIVE (Negative); URINE BLOOD NEGATIVE (Negative); URINE CLARITY CLEAR; URINE COLOR YELLOW; URINE GLUCOSE-RANDOM NEGATIVE (Negative); URINE KETONES NEGATIVE (Negative); URINE LEUKOCYTES-REFLEX 1+ (Negative); URINE NITRITE-REFLEX NEGATIVE (Negative); URINE PROTEIN NEGATIVE (Negative); URINE UROBILINOGEN 0.2 E.U./dl (0.2-1.0)
[2019-04-26 00:31] LABS: SQUAMOUS 0-3 Few /LPF (0-3)
[2019-04-26 00:32] LABS: BACTERIA-REFLEX >30 Many /HPF (None Seen); CASTS None Seen /LPF (None Seen); CRYSTALS None Seen /LPF (None Seen); MUCUS 0-3 Light strn/LPF (None Seen); TRANSITIONAL EPITHEL CELL 0-3 Few /LPF (None Seen); URINE WBC-REFLEX >25 Many /HPF (0-5); WBC CLUMPS Few (None Seen)
[2019-04-26] MEDS ORDERED: CEFDINIR300 MG PO (02:29)
[2019-04-26 02:49] VITALS: BP 145/71
--- NOTE | 2019-04-26 10:17 | EKG ---
[place] [address] ELECTROCARDIOGRAM REPORT Name: ROMULO WHITMAN [id number] Admission: 04/25/19 Attend Phys: Discharge: 04/26/19 Date of : 46 Report #: [id number] THIS REPORT FOR: //name// [facility] ED Test Date: 2019-04-25 Test Time: 22:37:33 Pat Name: ROMULO WHITMAN Department: Room: Gender: F Hog Man: PEGGY : 1950 Requested By: Cece Doss Order Number: [id number] MD: Darren Mcgrath Measurements Intervals [place] Rate: 76 P: 64 MA: 191 QRS: -9 QRSD: 148 T: 12 QT: 439 QTc: 494 Interpretive Statements Sinus rhythm Right bundle branch block Probable left ventricular hypertrophy Compared to ECG 02/07/2019 15:14:52 no change Electronically Signed On 04-26-2019 10:16:46 FLIGHT COORDINATOR by Darren Mcgrath [email or web address] <ELECTRONICALLY SIGNED> By: Darren Mcgrath MD, [facility] 04/26/19 1016 36 36 Darren Mcgrath MD, FACC /EPI
== END 2019-04-26 02:50 | disposition home or self-care (01) ==
LOC: M.ERS 22:32
PROVIDERS: Emergency Medicine
DX: N39.0 Urinary tract infection, site not specified (principal); I10 Essential (primary) hypertension; F17.210 Nicotine dependence, cigarettes, uncomplicated; Z90.710 Acquired absence of both cervix and uterus; Z88.0 Allergy status to penicillin; Z88.8 Allergy status to other drugs, medicaments and biological substances

== ENCOUNTER 2019-09-10 13:32 | Inpatient (IN) | payer MEDICARE ==
[~2019-09-10] VITALS: Ht 175.3 cm; Wt 59.0 kg
[~2019-09-10 13:32] MED LIST changes: +XANAX1 MG PO
[2019-09-10 13:42] VITALS: BP 169/81
[2019-09-10 14:23] LABS: ABSOLUTE EOSINOPHILS 0.2 thou/uL (0.0-0.7); ABSOLUTE LYMPHOCYTES 2.4 thou/uL (0.8-5.3); ABSOLUTE MONOCYTES 0.3 thou/uL (0.0-1.2); ABSOLUTE NEUTROPHILS 2.8 thou/uL (1.6-8.1); BASOPHILS 0.2 %; EOSINOPHILS 3.4 %; HEMATOCRIT 38.8 % (37.0-47.0); HEMOGLOBIN 13.3 gm/dL (12.0-15.0); LYMPHOCYTES 42.4 %; MCH 32.3 pg (26.0-34.0); MCHC 34.3 g/dL (28.0-37.0); MCV 94.1 fL (80.0-100.0); MONOCYTES 4.9 %; MPV 9.5 fl. (7.2-11.1); NUCLEATED RBCS 0 /100WBC; PLATELET COUNT* 168 thou/uL (150-400); POLYS 49.1 %; RBC 4.13 mil/uL (4.20-5.00); RDW-CV 13.7 % (10.5-14.5); WBC 5.6 thou/uL (4.0-11.0)
[2019-09-10 14:42] LABS: CALCIUM 8.5 mg/dL (8.5-10.1); CREATININE 1.4 mg/dL (0.6-1.3); POTASSIUM 4.8 mmol/L (3.5-5.1)
[2019-09-10 14:46] LABS: ALBUMIN 3.5 g/dL (3.4-5.0); TOTAL BILIRUBIN 0.3 mg/dL (<0.1-1.0)
[2019-09-10 15:21] LABS: URINE BILIRUBIN NEGATIVE (Negative); URINE BLOOD NEGATIVE (Negative); URINE CLARITY CLEAR; URINE COLOR YELLOW; URINE GLUCOSE-RANDOM NEGATIVE (Negative); URINE KETONES NEGATIVE (Negative); URINE LEUKOCYTES-REFLEX NEGATIVE (Negative); URINE NITRITE-REFLEX NEGATIVE (Negative); URINE PROTEIN NEGATIVE (Negative); URINE UROBILINOGEN 0.2 E.U./dl (0.2-1.0)
[2019-09-10 15:55] LABS: AMP/METHAMP Negative (Negative); BARBITURATES Negative (Negative); BENZODIAZEPINES POSITIVE (Negative); COCAINE Negative (Negative); METHADONE Negative (Negative); OPIATES Negative (Negative); PCP Negative (Negative); THC Negative (Negative)
[2019-09-10 17:04] VITALS: BP 146/67
--- NOTE | 2019-09-10 18:30 | NUR ---
PT ARRIVED TO UNIT VIA WHEELCHAIR AT APPROX 1700. PT A&O X4, VSS, RA, MED SURG STATUS, UP WITH WALKER AND STANDBY ASSIST. PT CONT TO C/O PAIN, REFUSED NORCO STATING IT "WOULDNT HELP AND WILL ONLY MAKE HER SICK". REQUESTING IV PAIN MEDS ONLY, PRN MORPHINE ON BOARD, AGAIN REQUESTED IV FENTANYL AND THIS NURSE EDUCATED PT THAT FENTANYL ORDERED WAS DISCONTINUED. PT THEN STATED SHE "MAY WELL JUST GO HOME". ORIENTED TO CALL LIGHT AND ROOM, HOURLY ROUNDING COMPLETED.
[2019-09-10 20:32] VITALS: BP 180/75
--- NOTE | 2019-09-10 21:05 | NUR ---
SPOKE WITH PATIENT REGARDING PAIN MANAGEMENT. SHE REFUSES MORPHINE REPORTS IT GIVES HER HIVES. SHE REFUSES 2 TAB OF HYDROCODONE BECAUSE SHE SAYS IT MAKES HER SICK. I OFFERED SAL WITH THE NORCO AND SHE STILL REFUSED IT. SHE RECEIVED A ONE TIME 50 MCG DOSE OF FENTANYL IN THE ER AT 1442. SHE STATES SHE WANTS MORE FENTANYL AND THAT HER PAIN IS AN 8/10. I EDUCATED HER ON THE SIDE EFFECTS OF THIS MEDICATION AND ITS RISKS WITH HER HEART RATE. HER HEART RATE IS IN THE 50'S. I SPOKE WITH DR ELIZONDO REGARDING THIS AND SHE AGREED TO GIVE A VERY SMALL DOSE OF FENTANYL Q6. I SPOKE WITH THE PATIENT AGAIN REGARDING SIDE EFFECTS. I EXPLAINED GETTING A LITTLE SICK FROM THE NORCO WAS SAFER THAN A DROP IN HEART RATE FROM FENTANYL. SHE DID NOT CARE AND REFUSED ALL OTHER OPTIONS. I WILL GIVE A SMALL DOSE OF FENTANYL AND MONITOR HER HEART RATE. IF IT DROPS EXCEPTIONALLY I WILL WITHOLD ANY MORE DOSES.
[2019-09-11] VITALS: BP 138/59
[2019-09-11 02:07] LABS: GLYCOHEMOGLOBIN (HGB A1C) 5.1 % (4.8-5.6)
--- NOTE | 2019-09-11 06:00 | NUR ---
PAIN 8/10. RECEIVING FENTANYL 25 MCG Q6. SHE DOES NOT WANT NORCO REPORTS IT MAKES HER SICK WONT TRY WITH ZOFRAN. REPORTS MORPHINE GIVES HER ANAPHYLAXIS. ALERT AND ORIENTED. UP TO RESTROOM WITH WALKER. WILL CONTINUE TO MONITOR.
[2019-09-11 06:35] LABS: HEMATOCRIT 36.8 % (37.0-47.0); HEMOGLOBIN 12.6 gm/dL (12.0-15.0); MCH 32.4 pg (26.0-34.0); MCHC 34.2 g/dL (28.0-37.0); MCV 94.7 fL (80.0-100.0); MPV 9.8 fl. (7.2-11.1); RBC 3.89 mil/uL (4.20-5.00); RDW-CV 13.7 % (10.5-14.5); WBC 5.8 thou/uL (4.0-11.0)
[2019-09-11 06:49] LABS: CALCIUM 8.5 mg/dL (8.5-10.1); CREATININE 1.2 mg/dL (0.6-1.3); POTASSIUM 4.1 mmol/L (3.5-5.1)
[2019-09-11 07:10] VITALS: BP 135/56
[2019-09-11 09:36] VITALS: BP 135/56
[2019-09-11 10:44] VITALS: BP 135/56
--- NOTE | 2019-09-11 10:46 | NUR ---
PT GIVEN DISCARGE INFORMATION. NO NEW PRESCRIPTIONS. IV REMOVED. PT BELONGINGS GATHERED AND PT LEFT VIA WHEELCHAIR WITH NURSING STAFF TO HOME. FALL RISK PRECAUTIONS IN PLACE. HOURLY ROUNDING COMPLETED.
--- NOTE | 2019-09-11 10:49 | NUR ---
SW called pt room to complete assessment and pt answered and said that she did not need anything and that her son was here to pick her up now to dc home. Pt has RW, home nebulizer, and son support.
[2019-09-11 10:54] VITALS: BP 135/56
--- NOTE | 2019-09-11 15:42 | EKG ---
[place] [address] ELECTROCARDIOGRAM REPORT Name: WHITMANROMULO Room: [address] M.R.#: [id number] Admission: 09/10/19 Attend Phys: Elsa colunga Sa Discharge: 09/11/19 Date of : 46 Date of Service: 09/10/19 1448 Report #: [id number] THIS REPORT FOR: //name// [facility] ED Test Date: 2019-09-10 Test Time: 14:48:29 Pat Name: ROMULO WHITMAN Department: Room: [facility] Gender: F Field Marketing Representative: JOSE : 1950 Requested By: Rubens Esteban Order Number: [id number] MD: Stone Nuñez Measurements Intervals [place] Rate: 51 P: 48 [place]: 198 QRS: 6 QRSD: 139 T: 26 QT: 462 QTc: 426 Interpretive Statements Sinus rhythm Right bundle branch block Electronically Signed On 09-11-2019 15:40:49 CDT by Stone Nuñez [email or web address] <ELECTRONICALLY SIGNED> By: Stone Nuñez MD, [facility] 09/11/19 1540 1448 1448 Stone Nuñez MD, [facility] /EPI
== END 2019-09-11 11:06 | disposition home or self-care (01) | DRG 642 ==
LOC: M.ERS 13:32 → M.2W 14:53 → M.TBA-ER 14:53 → M.2W 14:53
PROVIDERS: Family Medicine; ADMIT Family Medicine
DX: E80.21 Acute intermittent (hepatic) porphyria (principal); F11.20 Opioid dependence, uncomplicated; G89.29 Other chronic pain; I12.9 Hypertensive chronic kidney disease with stage 1 through stage 4 chronic kidney disease, or unspecified chronic kidney disease; N18.3 Chronic kidney disease, stage 3 (moderate); F17.210 Nicotine dependence, cigarettes, uncomplicated; Z90.710 Acquired absence of both cervix and uterus; K59.09 Other constipation; Z88.0 Allergy status to penicillin; Z88.8 Allergy status to other drugs, medicaments and biological substances; Z79.899 Other long term (current) drug therapy

== ENCOUNTER 2019-10-10 11:10 | Inpatient (IN) | payer MEDICARE ==
[~2019-10-10] VITALS: Ht 175.3 cm; Wt 65.8 kg
[2019-10-10 11:20] VITALS: BP 148/86
[2019-10-10 11:40] LABS: URINE BILIRUBIN NEGATIVE (Negative); URINE BLOOD 3+ (Negative); URINE CLARITY TURBID; URINE COLOR RED; URINE GLUCOSE-RANDOM NEGATIVE (Negative); URINE KETONES NEGATIVE (Negative); URINE LEUKOCYTES-REFLEX TRACE (Negative); URINE NITRITE-REFLEX NEGATIVE (Negative); URINE PROTEIN 3+ (Negative); URINE SPECIFIC GRAVITY 1.015 (1.005-1.030); URINE UROBILINOGEN 0.2 E.U./dl (0.2-1.0)
[2019-10-10 11:40] LABS: ABSOLUTE EOSINOPHILS 0.2 thou/uL (0.0-0.7); ABSOLUTE LYMPHOCYTES 2.5 thou/uL (0.8-5.3); ABSOLUTE MONOCYTES 0.4 thou/uL (0.0-1.2); ABSOLUTE NEUTROPHILS 7.3 thou/uL (1.6-8.1); BASOPHILS 0.2 %; EOSINOPHILS 2.2 %; HEMATOCRIT 43.2 % (37.0-47.0); HEMOGLOBIN 14.9 gm/dL (12.0-15.0); LYMPHOCYTES 23.8 %; MCH 32.4 pg (26.0-34.0); MCHC 34.6 g/dL (28.0-37.0); MCV 93.7 fL (80.0-100.0); MONOCYTES 3.4 %; MPV 9.2 fl. (7.2-11.1); NUCLEATED RBCS 0 /100WBC; PLATELET COUNT* 182 thou/uL (150-400); POLYS 70.4 %; RBC 4.61 mil/uL (4.20-5.00); RDW-CV 13.5 % (10.5-14.5); WBC 10.3 thou/uL (4.0-11.0)
[2019-10-10 11:45] LABS: BACTERIA-REFLEX 1-9 Few /HPF (None Seen); CASTS None Seen /LPF (None Seen); CRYSTALS None Seen /LPF (None Seen); MUCUS 4-6 Moderate strn/LPF (None Seen); SQUAMOUS 0-3 Few /LPF (0-3); URINE RBC >20 Many /HPF (0-2); URINE WBC-REFLEX 0-5 Rare /HPF (0-5)
[2019-10-10 11:47] LABS: CALCIUM 9.1 mg/dL (8.5-10.1); CREATININE 1.7 mg/dL (0.6-1.3); POTASSIUM 4.3 mmol/L (3.5-5.1)
[2019-10-10 11:52] LABS: ALBUMIN 4.3 g/dL (3.4-5.0); TOTAL BILIRUBIN 0.4 mg/dL (<0.1-1.0); TOTAL PROTEIN 8.2 g/dL (6.4-8.2)
[2019-10-10 13:18] LABS: APTT 25.2 Seconds (25.0-31.3); PROTIME 10.1 Seconds (9.20-11.50)
[2019-10-10 14:18] VITALS: BP 153/82
[2019-10-10 14:29] LABS: AMP/METHAMP Negative (Negative); BARBITURATES Negative (Negative); BENZODIAZEPINES POSITIVE (Negative); COCAINE Negative (Negative); METHADONE Negative (Negative); OPIATES Negative (Negative); PCP Negative (Negative); THC Negative (Negative)
[2019-10-10 14:31] VITALS: BP 142/99
--- NOTE | 2019-10-10 17:07 | NUR ---
PATIENT RESTING IN BED AT THIS TIME POST FENTANYL GIVEN FOR ABDOMINAL PAIN. PATIENT URINATED AND NO BLOOD PRESENT AT THIS TIME. VITALS REMAIN STABLE. FLUIDS INFUSING. NO QUESTIONS OR CONCERNS AT THIS TIME. BED IN LOWEST POSITION, CALL LIGHT IN REACH, HIGH FALL PREACUTIONS IN PLACE.
[2019-10-10 20:30] VITALS: BP 128/74
[2019-10-11 05:03] LABS: ABSOLUTE BASOPHILS 0.1 thou/uL (0.0-0.2); ABSOLUTE EOSINOPHILS 0.2 thou/uL (0.0-0.7); ABSOLUTE LYMPHOCYTES 3.4 thou/uL (0.8-5.3); ABSOLUTE MONOCYTES 0.3 thou/uL (0.0-1.2); ABSOLUTE NEUTROPHILS 2.5 thou/uL (1.6-8.1); BASOPHILS 2.2 %; EOSINOPHILS 3.4 %; HEMATOCRIT 37.6 % (37.0-47.0); LYMPHOCYTES 52.3 %; MCH 32.3 pg (26.0-34.0); MCHC 33.9 g/dL (28.0-37.0); MCV 95.3 fL (80.0-100.0); MONOCYTES 4.2 %; MPV 9.5 fl. (7.2-11.1); NUCLEATED RBCS 0 /100WBC; PLATELET COUNT* 164 thou/uL (150-400); POLYS 37.9 %; RBC 3.94 mil/uL (4.20-5.00); RDW-CV 13.7 % (10.5-14.5); WBC 6.5 thou/uL (4.0-11.0)
[2019-10-11 05:08] LABS: HEMOGLOBIN 12.7 gm/dL (12.0-15.0)
[2019-10-11 05:18] LABS: CALCIUM 8.4 mg/dL (8.5-10.1); CREATININE 1.5 mg/dL (0.6-1.3); POTASSIUM 4.2 mmol/L (3.5-5.1)
--- NOTE | 2019-10-11 06:02 | NUR ---
PT SLEPT WELL OVERNIGHT. RECEIVING IV FENTANYL FOR CO R FLANK PAIN WITH GOOD RESULT. AM LABS DRAWN. UP WITH SBA, VIMAL WALKER TO BR TO VOID, NO BLOOD NOTED IN URINE. RAC IVF INFUSING PER PUMP. AOX4, ABLE TO USE CALL LITE AND MAKE NEEDS KNOWN. BED ALARM ON FOR SAFETY.
[2019-10-11 08:30] VITALS: BP 153/67
--- NOTE | 2019-10-11 16:17 | NUR ---
Pt is A&O. Resides at home with her son. Recently dc from this hospital in August to home, no needs. Pt uses a walker for mobility. Pt states that she rarely leaves the home, she has a hard time going down the stairs, son is available as needed. Pt states that she no longer uses her neb. Independent. Hx of [facility]. H[facility] of skilled at [facility] and [facility]. Goal is home at ok. No needs anticipated.
--- NOTE | 2019-10-11 16:37 | NUR ---
PT UP IN ROOM WITH SB ASSIST AND WALKER. HEMATURIA NO LONGER PRESENT. PAIN WELL CONTROLLED WITH MINIMAL DOSES OF FENTANYL. TOLERATING PO WELL.
[2019-10-11 20:30] VITALS: BP 168/85
--- NOTE | 2019-10-12 06:14 | NUR ---
PT SLEPT ON AND OFF OVERNIGHT. RECEIVING IV PAIN MED PRN FOR CO R FLANK PAIN AND ABD PAIN WITH GOOD RESULT. UP WITH SBA AND WALKER TO BR TO VOID, NO REPORT OF BLOOD IN URINE THIS SHIFT. RAC SL IV. NO LABS THIS MORNING. ABLE TO USE CALL LITE AND MAKE NEEDS KNOWN. HOPEFUL FOR DISCHARGE HOME SOON.
[2019-10-12 07:50] VITALS: BP 154/77
[2019-10-12] MEDS ORDERED: CIPRO500 MG PO (11:52)
[2019-10-12 14:00] VITALS: BP 154/77
[2019-10-12] MEDS ORDERED: CIPRO500 M1 PO (14:59)
--- NOTE | 2019-10-12 15:08 | NUR ---
PT A&OX4 VSS. PT DOES NOT REPORT HEMATURIA AT THIS TIME. PT UP W/WALKER GAIT STEADY. IV TO RAC DC'D PRIOR TO PT LEAVING UNIT. PT CONTINENT OF B/B. PT STATES UNDERSTANDING OF DC INSTRUCTIONS AND FOLLOW-UP INFORMATION. PT EDUCATED REGARDING RX CIPRO CALLED INTO [facility] BY DR LEZAMA. PT DRESSED INDEPENDENTLY. PT TRANSPORTED FROM UNIT IN W/NURSING STAFF.
== END 2019-10-12 15:00 | disposition home or self-care (01) | DRG 689 ==
LOC: M.ERS 11:10 → M.3W 13:10 → M.TBA-ER 13:10 → M.3W 14:19
PROVIDERS: Family Medicine; ADMIT Internal Medicine
DX: N30.01 Acute cystitis with hematuria (principal); N17.0 Acute kidney failure with tubular necrosis; I10 Essential (primary) hypertension; K59.09 Other constipation; F17.210 Nicotine dependence, cigarettes, uncomplicated; Z90.710 Acquired absence of both cervix and uterus; Z79.899 Other long term (current) drug therapy; Z88.6 Allergy status to analgesic agent; Z88.5 Allergy status to narcotic agent; Z88.0 Allergy status to penicillin; Z88.8 Allergy status to other drugs, medicaments and biological substances

== ENCOUNTER 2020-11-28 15:58 | Emergency (ER) | payer MEDICARE ==
[~2020-11-28] VITALS: Ht 177.8 cm; Wt 56.7 kg
[~2020-11-28 15:58] MED LIST changes: +CIPRO500 M1 PO
[2020-11-28] MEDS ORDERED: LISINOPRIL20 MG PO (16:08)
[2020-11-28] MEDS ORDERED: NORVASC5 MG PO (16:08)
[2020-11-28] MEDS ORDERED: ASA81BEC PO (16:08)
[2020-11-28] MEDS ORDERED: GRALISE600 MG PO (16:08)
[2020-11-28] MEDS ORDERED: PLAVIX 75 MG TA75 MG PO (16:08)
[2020-11-28 16:20] LABS: HEMOGLOBIN 12.3 gm/dL (12.0-15.0); MCH 32.7 pg (26.0-34.0); MCHC 35.2 g/dL (28.0-37.0); MCV 93.1 fL (80.0-100.0); MPV 8.7 fl. (7.2-11.1); RBC 3.76 mil/uL (4.20-5.00); RDW-CV 14.3 % (10.5-14.5); WBC 5.9 thou/uL (4.0-11.0)
[2020-11-28 16:31] LABS: CALCIUM 9.4 mg/dL (8.5-10.1); CREATININE 1.2 mg/dL (0.6-1.3); POTASSIUM 3.9 mmol/L (3.5-5.1)
[2020-11-28 17:23] VITALS: BP 167/71
--- NOTE | 2020-11-29 11:32 | EKG ---
[place] [address] ELECTROCARDIOGRAM REPORT Name: ROMULO WHITMAN Room: [facility]#: [id number] Admission: 11/28/20 Attend Phys: Discharge: 11/28/20 Date of : 46 Date of Service: 11/28/20 1605 Report #: [id number] THIS REPORT FOR: //name// [facility] ED Test Date: 2020-11-28 Test Time: 16:05:56 Pat Name: ROMULO WHITMAN Department: Room: Gender: F Stem Sizer: DOREEN TADEO : 1950 Requested By: Lars No Order Number: [id number] MD: Darren Mcgrath Measurements Intervals [place] Rate: 67 P: 24 SD: 179 QRS: 0 QRSD: 137 T: 4 QT: 420 QTc: 444 Interpretive Statements Sinus rhythm Right bundle branch block Compared to ECG 09/10/2019 14:48:29 rate has increased Electronically Signed On 11-29-2020 11:32:33 CDT by Darren Mcgrath [email or web address] <ELECTRONICALLY SIGNED> By: Darren Mcgrath MD, [facility] 11/29/20 1132 1605 1605 Darren Mcgrath MD, [facility] /EPI
== END 2020-11-28 17:23 | disposition home or self-care (01) ==
LOC: M.ERS 15:58
PROVIDERS: Emergency Medicine Emergency Medical Services
DX: I10 Essential (primary) hypertension (principal); F17.210 Nicotine dependence, cigarettes, uncomplicated; Z88.0 Allergy status to penicillin; Z88.5 Allergy status to narcotic agent; Z88.8 Allergy status to other drugs, medicaments and biological substances; Z90.710 Acquired absence of both cervix and uterus